=== PATIENT | female | born 1935 | race Hispanic/Latino ===

== ENCOUNTER 2019-09-05 15:56 | Inpatient (IN) | payer MEDICARE, OTHER ==
[~2019-09-05] VITALS: Ht 154.9 cm; Wt 79.4 kg
[2019-09-05] MEDS ORDERED: ASPIRIN 81 MG CHEW TAB PO ONE (16:15)
--- NOTE | 2019-09-05 16:51 | Diagnostic Imaging Report ---
EXAM: CHEST SINGLE (PORTABLE) DATE: 09/05/2019 4:24 PM INDICATION: Fall/edema COMPARISON: None IMPRESSION: Lung volumes are low/there is poor inspiratory effort. The trachea is midline. There is minimal prominence of the interstitium which is nonspecific but can be seen in setting of edema. There is no evidence for large focal consolidation or pneumothorax. There is blunting of the costophrenic angles and trace effusions are suspected. The cardiomediastinal silhouette is magnified by technique. Atherosclerotic calcifications are noted within the thoracic aorta. No acute osseous abnormality is identified. Signed by: Dr. Danny Cartwright MD on 09/05/2019 4:47 PM
--- NOTE | 2019-09-05 17:06 | NUR ---
pt daughter signs consent for pt for central line
[2019-09-05 17:24] LABS: BILIRUBIN,URINE SMALL (NEGATIVE); CLARITY,URINE SL CLOUDY (CLEAR); COLOR,URINE STRAW (YELLOW); KETONES,URINE 1+ (NEGATIVE); LEUKOCYTE ESTERASE ,URINE SMALL (NEGATIVE); NITRITE,URINE NEGATIVE (NEGATIVE); PROTEIN,URINE DIPSTICK NEGATIVE (NEGATIVE); URINE UROBILINOGEN 1 mg/dL (0.2 - 1)
--- OUTSIDE RECORDS SUMMARY | 2019-09-05 17:27 | XMS REPORT ---
Author Author [facility] Organization [facility] Address Unknown Phone Unavailable Care Team Providers Care Breeding Manager Name Role Phone FLOWER PRECIOUS Unavailable Unavailable Problems This patient has no known problems. Allergies, Adverse Reactions, Alerts This patient has no known allergies or adverse reactions. Medications This patient has no known medications. Results Test Description Test Time Test Comments Text Results Atomic Results Result Comments CHEST SINGLE (PORTABLE) 2019-09-05 16:46:00 [place] [address] Patient Name: MARYJO GEORGE MR #: [id number] : 1935 Age/Sex: 83/F Req #: [id number] Adm Physician: Ordered by: PRECIOUS CRENSHAW DO Report #: [id number] Location: ER Room/Bed: Procedure: [id number] DX/CHEST SINGLE (PORTABLE) Exam Date: 09/05/19 Exam Time: 1624 REPORT STATUS: Signed EXAM: CHEST SINGLE (PORTABLE) DATE: 09/05/2019 4:24 PM INDICATION: Fall/edema COMPARISON: None IMPRESSION: Lung volumes are low/there is poor inspiratory effort. The trachea is midline. There is minimal prominence of the interstitium which is nonspecific but can be seen in setting of edema. There is no evidence for large focal consolidation or pneumothorax. There is blunting of the costophrenic angles and trace effusions are suspected. The cardiomediastinal silhouette is magnified by technique. Atherosclerotic calcifications are noted within the thoracic aorta. No acute osseous abnormality is identified. Signed by: Dr. Danny Cartwright MD on 09/05/2019 4:47 PM Dictated By: DANNY CARTWRIGHT MD 46 Transcribed By: ROXIE on 09/05/191646 COPY TO: PRECIOUS CRENSHAW DO
[2019-09-05 17:37] LABS: BACTERIA,URINE MANY /HPF
[2019-09-05] MEDS: PIPER-TAZ 3.375 GM 50 ML IV SCH (18:26)
[2019-09-05 18:42] LABS: BASOPHILS % 0.2 % (0.0-1.0); EOSINOPHILS # (AUTO) 0.1 (0.0-0.4); EOSINOPHILS % 0.6 % (0.0-6.0); HEMATOCRIT 31.3 % (34.2-44.1); HEMOGLOBIN 10.6 g/dL (12.0-16.0); LYMPHOCYTES # (AUTO) 1.4 (1.0-3.2); LYMPHOCYTES % 13.5 % (18.0-39.1); MEAN CORPUSCULAR HEMOGLOBIN 30.5 pg (28-32); MEAN CORPUSCULAR HGB CONC 33.9 g/dL (31-35); MEAN CORPUSCULAR VOLUME 90.2 fL (81-99); MONOCYTES # (AUTO) 1.1 (0.2-0.8); MONOCYTES % 10.8 % (4.4-11.3); NEUTROPHILS # (AUTO) 7.5 (2.1-6.9); NEUTROPHILS % 74.4 % (38.7-80.0); PLATELET COUNT 185 x10e3/uL (140-360); RED BLOOD COUNT 3.47 x10e6/uL (3.6-5.1); RED CELL DISTRIBUTION WIDTH 15.1 % (11.7-14.4)
[2019-09-05 19:00] LABS: ALANINE AMINOTRANSFERASE 10 IU/L (0-55); ALBUMIN 2.2 g/dL (3.5-5.0); ALBUMIN/GLOBULIN RATIO 0.6 (0.8-2.0); ALKALINE PHOSPHATASE 67 IU/L (40-150); ANION GAP 12.4 mmol/L (8-16); BLOOD UREA NITROGEN 24 mg/dL (7-26); BUN/CREATININE RATIO 36 (6-25); CALCIUM 7.9 mg/dL (8.4-10.2); CARBON DIOXIDE 23 mmol/L (22-29); CHLORIDE 104 mmol/L (98-107); CREATINE KINASE 39 IU/L (29-168); CREATININE, SERUM 0.66 mg/dL (0.57-1.11); EST GLOMERULAR FILTRATION RATE > 60 ML/MIN (60-); GLUCOSE 172 mg/dL (74-118); LIPASE 26 U/L (8-78); POTASSIUM 4.4 mmol/L (3.5-5.1); SODIUM 135 mmol/L (136-145)
--- NOTE | 2019-09-05 19:00 | NUR ---
pt arrived to unit via stretcher, Noyola intact, left arm in sling, alert times herself, resp even and unlabored. will cont to monitor.
--- NOTE | 2019-09-05 19:23 | NUR ---
report given to oncoming nurse, walking rounds complete, pt stable at shift change.
--- NOTE | 2019-09-05 19:25 | NUR ---
Patient received lying in bed. AAO x 2. Patient had no complaints of pain. Respirations even and non-labored. Admission history obtained from chart (mostly armenian-speaking). Initial physical assessment performed. Patient noted with arm sling to right arm, generalized edema, left eye bruise, right upper shoulder/ arm bruising, blackened indurated head bruise (right eye region). Noyola catheter draining light estephania urine. Three attempts to call daughter (Lulú Mchugh----[phone]) proved futile. A message was left on voice-mail for her to contact hospital. Safety measures implemented. Patient instructed to call for assistance when needed. Call light within reach.
[2019-09-05 20:00] VITALS: BP 142/68
[2019-09-05] MEDS ORDERED: METFORMIN HCL500 MG PO (20:25)
[2019-09-05] MEDS ORDERED: ULTRAM 50MG50 MG PO (20:25)
[2019-09-05] MEDS ORDERED: GLIPIZIDE5 MG PO (20:25)
[2019-09-05 21:00] VITALS: BP 142/68
--- NOTE | 2019-09-05 21:30 | NUR ---
Admitting physician changed to Dr. Kike Mendez. New orders received.
[2019-09-05] MEDS ORDERED: DEXTROSE 50% SYRINGE 50 ML IV PRN (21:45)
--- NOTE | 2019-09-05 21:54 | NUR ---
Dr.C. Lynn notified of "Consult" . Reason: Right hand fracture.
[2019-09-05] MEDS: INSULIN REGULAR, HUMAN 100 UNIT/1 ML 3ML VIAL SQ SCH (22:00)
--- NOTE | 2019-09-05 22:33 | NUR ---
Dr. Gillian Garland aware of "Consult". Reason: Ascites
--- NOTE | 2019-09-05 22:34 | NUR ---
Patient back from CT of Brain WO.
[2019-09-05] MEDS ORDERED: SODIUM CHLORIDE 0.9% 250ML 250 ML ONE (23:19)
--- NOTE | 2019-09-05 23:47 | Diagnostic Imaging Report ---
History:Altered mental status Comparison studies: None Technique: Axial images were obtained from the skull base to the vertex. Coronal and sagittal images reconstructed from the axial data. Dose modulation, iterative reconstruction, and/or weight based adjustment of the mA/kV was utilized to reduce the radiation dose to as low as reasonably achievable. Intravenous contrast: None Findings: Scalp/skull: No abnormalities. Extra-axial spaces: No masses. No fluid collections. Brain sulci: Moderately prominent. Ventricles: Moderate compensatory dilatation. No hydrocephalus. Parenchyma: Ill-defined, confluent hypodensities in the supratentorial white matter are small vessel ischemic changes. No masses, hemorrhage, acute or chronic cortical vascular insults. Sellar/suprasellar region: No abnormalities. Craniocervical junction: Patent foramen magnum. No Chiari one malformation. Incidental findings: Atherosclerotic calcifications in the carotid siphons and vertebral arteries. Peripheral mucosal thickening in a hypoplastic left sphenoid sinus. Impression: No acute abnormalities. Chronic findings: 1. Moderate generalized volume loss. 2. Moderate supratentorial white matter small vessel ischemic changes. Signed by: Dr. Gagan William M.D. on 09/05/2019 11:44 PM
[2019-09-06] VITALS (10 sets, daily range): BP systolic 89–159; BP diastolic 56–97
--- NOTE | 2019-09-06 01:35 | NUR ---
Urine specimen sent to lab for analysis.
[2019-09-06 02:47] LABS: CLARITY,URINE CLOUDY (CLEAR); COLOR,URINE AMBER (YELLOW); LEUKOCYTE ESTERASE ,URINE 1+ (NEGATIVE); NITRITE,URINE POSITIVE (NEGATIVE)
[2019-09-06 02:48] LABS: BILIRUBIN,URINE SMALL (NEGATIVE); KETONES,URINE 2+ (NEGATIVE); PROTEIN,URINE DIPSTICK 2+ (NEGATIVE); URINE UROBILINOGEN 1 mg/dL (0.2 - 1)
[2019-09-06 03:04] LABS: BACTERIA,URINE MANY /HPF; EPITHELIAL CELLS,URINE FEW /LPF; RBC,URINE 21-50 /HPF (0-5); RENAL EPITHELIAL CELLS,URINE FEW; WBC,URINE (MAN) >50 /HPF (0-5)
--- NOTE | 2019-09-06 03:12 | NUR ---
Attempt was made to obtain consent from patient for paracentesis via Multicultural link through a financial services professional (--#[phone]) , Audio access ID #[id number]. However, patient stated that Nurse call her granddaughter---Starr Mata. No phone number in chart. Would attempt patient's home number ([phone] ) in the morning.
--- NOTE | 2019-09-06 05:35 | NUR ---
H&P cc: confusion HPI: 83yoF, PCP, developed confusion, found to have UTI and hyperbilirubinemia. Pt apparently fell, with resulting injury to right arm, now in sling. Pt is a poor historian. PMH: obesity PSHx: unknown Allergies; see emr Fh/SH; unknown meds; see MAR ROS: unreliable V/s; revd PE tired appearing anicteric ns1s2 Reduced breath sounds large abdomen,soft, nontender 2+ leg edema B/L right arm in sling skin dry n. affect alert; oriented x2 labs/meds revd A/P: 83yoF Hyperbilirubinemia- check hepatitis panel UTI- zosyn Pleural effusion B/L- diurese Peripheral edema- diurese Ascites- paraecentesis scheduled Right hand fx?- check XR of entire arm/wrist SKYLER/AMS- treat UTI; Ammonia 40 Obesity- caloric restriction needed BMI 33.1- as above DM2- hba1c/lipids Prop: scd; pepcid dispo: f/u labs; paracentesis. XR of right arm. Balta Mendez MD, PhD.
[2019-09-06] MEDS ORDERED: TRAMADOL HCL 50 MG TAB PO PRN (05:45)
[2019-09-06] MEDS ORDERED: ZOLPIDEM TARTRATE 5 MG TAB PO PRN (05:45)
[2019-09-06] MEDS ORDERED: ONDANSETRON HCL INJ 2MG/ML 2ML 2 MG/ML VIAL IV PRN (05:45)
--- NOTE | 2019-09-06 05:52 | NUR ---
A call was placed to telephone number ([phone]) listed in chart as patient's number. No one picked up the phone. No space to leave a voice-message.
[2019-09-06 05:58] LABS: ALANINE AMINOTRANSFERASE 8 IU/L (0-55); ALBUMIN 1.9 g/dL (3.5-5.0); ALBUMIN/GLOBULIN RATIO 0.6 (0.8-2.0); ALKALINE PHOSPHATASE 55 IU/L (40-150); ANION GAP 11.3 mmol/L (8-16); BLOOD UREA NITROGEN 23 mg/dL (7-26); BUN/CREATININE RATIO 35 (6-25); CALCIUM 7.7 mg/dL (8.4-10.2); CARBON DIOXIDE 24 mmol/L (22-29); CHLORIDE 105 mmol/L (98-107); CREATININE, SERUM 0.66 mg/dL (0.57-1.11); EST GLOMERULAR FILTRATION RATE > 60 ML/MIN (60-); GLUCOSE 143 mg/dL (74-118); POTASSIUM 4.3 mmol/L (3.5-5.1); SODIUM 136 mmol/L (136-145)
[2019-09-06] MEDS: PIPER-TAZ 3.375 GM 50 ML IV SCH ×4 (06:00→17:48)
--- NOTE | 2019-09-06 06:28 | NUR ---
Telephone consent for "Paracentesis" obtained from daughter----Lulú Mchugh ([phone]). Sathya Frey (YENI) serving as witness.
[2019-09-06 06:30] LABS: BASOPHILS % 0.2 % (0.0-1.0); EOSINOPHILS # (AUTO) 0.1 (0.0-0.4); EOSINOPHILS % 0.8 % (0.0-6.0); HEMATOCRIT 28.2 % (34.2-44.1); HEMOGLOBIN 9.5 g/dL (12.0-16.0); LYMPHOCYTES # (AUTO) 1.4 (1.0-3.2); LYMPHOCYTES % 14.1 % (18.0-39.1); MEAN CORPUSCULAR HEMOGLOBIN 30.3 pg (28-32); MEAN CORPUSCULAR HGB CONC 33.7 g/dL (31-35); MEAN CORPUSCULAR VOLUME 89.8 fL (81-99); MONOCYTES # (AUTO) 1.1 (0.2-0.8); MONOCYTES % 11.6 % (4.4-11.3); NEUTROPHILS # (AUTO) 7.1 (2.1-6.9); NEUTROPHILS % 72.9 % (38.7-80.0); PLATELET COUNT 133 x10e3/uL (140-360); RED BLOOD COUNT 3.14 x10e6/uL (3.6-5.1)
[2019-09-06 06:51] LABS: INR 1.26; PROTHROMBIN TIME 16.6 seconds (11.9-14.5)
--- NOTE | 2019-09-06 07:00 | NUR ---
Patient resting comfortably. No acute distress noted. Shift report given to oncoming nurse regarding patient's status.
[2019-09-06 07:08] LABS: FERRITIN 57.14 ng/mL (4.63-204.00)
--- NOTE | 2019-09-06 07:10 | NUR ---
RCD PT AT BED PT IS ALERT AND ORIENTED RESTING ON BED IV PATENT BY SALINE FLUSH PT NPO FOR PROCEDURE BED LOW AND LOCKED CALL LIGHT IN REACH
[2019-09-06 07:28] LABS: CREATINE KINASE MB 4.7 ng/mL (0-5.0)
[2019-09-06] MEDS: FAMOTIDINE 20 MG TAB PO SCH ×2 (07:30→16:30)
[2019-09-06] MEDS: INSULIN REGULAR, HUMAN 100 UNIT/1 ML 3ML VIAL SQ SCH ×4 (07:30→21:09)
--- NOTE | 2019-09-06 09:12 | Diagnostic Imaging Report ---
EXAM: Limited abdominal Ultrasound INDICATION: ^Ascites ^[id number] ^0745 COMPARISON: None. TECHNIQUE: Transverse and longitudinal images of the 4 abdominal quadrants FINDINGS: Sonographic evaluation of the 4 abdominal quadrants confirms presence of moderate anechoic ascites throughout the peritoneal space. IMPRESSION: Moderate ascites. Signed by: Dr. Kingsley Schuster M.D. on 09/06/2019 9:08 AM
--- NOTE | 2019-09-06 11:37 | NUR ---
PATIENT WENT TO PROCEDURE IN SAFE CONDITION
--- NOTE | 2019-09-06 12:30 | NUR ---
REMOVED 5.9 LTRS YELLOW COLOR
--- NOTE | 2019-09-06 12:30 | NUR ---
PT BACK AFTER PROCEDURE PT IS ALERT AND ORIENTED VITALS CHECKED PT RESTING ON BED NO SIGNS OF ANY LEAKAGE ON THE NEEDLE SITE ON ABDOMEN
--- NOTE | 2019-09-06 13:24 | Diagnostic Imaging Report ---
EXAMINATION: SHOULDER RIGHT COMPLETE, HAND 3+ VIEWS RIGHT, WRIST COMPLETE RIGHT INDICATION: Trauma COMPARISON: None FINDINGS: Right shoulder: Mildly displaced acute anatomic neck of proximal humerus fracture with mild lateral displacement of greater tuberosity fragment. No other acute fracture. Visualized portions of the right lung are clear. Right wrist: No acute fracture or dislocation. Mild widening of the scapholunate interval. Alignment appears anatomic. Mild scattered degenerative changes. Atherosclerotic arterial calcifications. Right hand: No acute fracture or dislocation. Mild scattered degenerative changes. Atherosclerotic arterial calcifications. IMPRESSION: Mildly displaced anatomic neck of proximal humerus fracture. No acute fracture of the wrist or hand. Mild widening of the scapholunate interval, more likely chronic than related to acute injury. Signed by: Aida Valencia MD on 09/06/2019 1:20 PM
--- NOTE | 2019-09-06 13:33 | Diagnostic Imaging Report ---
PROCEDURE: Ultrasound-guided paracentesis Procedural Personnel Attending physician(s): Aida Valencia MD Pre-procedure diagnosis: Ascites Post-procedure diagnosis: Unchanged Indication: Ascites with pain or pressure symptoms Additional clinical history: None Complications: No immediate complications. IMPRESSION: Ultrasound-guided paracentesis with drainage of 5900 mL of serous fluid. Plan: Resume care by clinical team. PROCEDURE SUMMARY: - Limited abdominal ultrasound - Ultrasound-guided paracentesis - Additional procedure(s): None PROCEDURE DETAILS: Pre-procedure Consent: Informed consent for the procedure including risks, benefits and alternatives was obtained and time-out was performed prior to the procedure. Preparation: The site was prepared and draped using maximal sterile barrier technique including cutaneous antisepsis. Anesthesia/sedation Level of anesthesia/sedation: None Initial abdominal ultrasound Initial abdominal ultrasound was performed. Findings: Large ascites. A safe window for paracentesis was identified. Paracentesis Local anesthesia was administered. The peritoneal cavity was accessed and fluid return confirmed position. Ascites was drained. The catheter was then removed, and a sterile bandage was applied. Paracentesis access technique: Real-time ultrasound guidance. Catheter placed: 5Fr Yueh Post-drainage ultrasound: Small ascites Additional Details Additional description of procedure: None Equipment details: None Specimens removed: Abdominal fluid Estimated blood loss (mL): Minimal (<10cc) Standardized report: [id number] Attestation Signer name: Aida Valencia MD I attest that I was present for the entire procedure. I reviewed the stored images and agree with the report as written. Signed by: Aida Valencia MD on 09/06/2019 1:30 PM
--- NOTE | 2019-09-06 19:15 | NUR ---
PT RESTING ON BED BED SIDE REPORT GIVEN TO ONCOMING NURSE
--- NOTE | 2019-09-06 19:15 | NUR ---
RECEIVED BEDSIDE REPORT FROM DAY RN. PT ALERT X1. CONFUSED BUT COOPERATIVE WITH CARE. PT SPEAKS [place]. RESPIRATIONS ARE EVEN AND UNLABORED. TELE ON. SLING ON RT SHOULDER AND ARM. PT FORGETFUL AND TRY TO REMOVE SLING. 20 G SL LEFT AC. DRESSING TO ABDOMEN DRY AND INTACT. DRESSING TO RT GROIN MODERATELY SATURATED WITH SEROUS SANGUINOUS DRAINAGE.SORIANO CATHER DRAING CLEAR YELLOW URINE.SORIANO USED DUE TO RETENTION.BRUISE ABOVE LEFT EYE. BRUISES NOTED ON RT ARM AND SHOULDER. TALKED WITH DAUGHTER ABOUT DOCTOR'S PLANS.CALL LIGHT WITHIN REACH. BED IN LOW POSITION.LOWER EXTREMITIES EDEMATOUS.
--- NOTE | 2019-09-06 19:16 | NUR ---
ORTHOPEDIC CONSULTATION 83 year old female presents to the ED after fall with AMS, and UTI. Patient is occitan speaking and poor historian. She complains of mainly right shoulder pain. She denies any numbness, paresthesias or loss of distal motor function. PMdHx: Obesity SurgHx: Unknown Allergies: NKDA Meds: See Med Reconciliation FamHx: Non-contributory SocHx: No EtOH, Tob or Drugs VS T 97.5 HR 89 RR 18 BP 136/66 O2 97% Right Upper Extremity In Sling Motor: + AIN, PIN, Radial, Median, Ulnar Sensation intact to light touch and along Axillary region Pulses + Radial, good capillary refill Compartments soft No TTP of Wrist and Hand Xrays: No gross fracture of hand or wrist. Mild widening of scapholunate interval. Surgical neck fracture of humerus seen on one view. 83 yo with Right Proximal Humerus Surgical Neck Fracture and likely chronic scapholunate sprain. 1. Continue Sling 2. Follow up Xrays of Right Proximal Humerus 3. Likely no operative intervention at this time. Will be confirmed after visualization of additional views 4. NWB RUE 5. Patient may follow up in office in 1 week for repeat Xray 6. Discussed plan of care with patient. Thank you for the consultation Britt Lynn, DO [facility] [place].
[2019-09-06 20:15] LABS: BODY FLUID APPEARANCE SL.CLOUDY; BODY FLUID COLOR YELLOW; BODY FLUID TYPE PERITONEAL
[2019-09-06 20:20] LABS: EOSINOPHILS,BODY FLUID 1 %; LYMPHOCYTES,BODY FLUID 48 %; MONO/MACROPHG,BODY FLUID 44 %; NEUTROPHILS,BODY FLUID 3 %
[2019-09-06 20:21] LABS: OTHER CELLS,BODY FLUID 4 %
[2019-09-06 20:24] LABS: RBC,BODY FLUID 38 cells/uL; WBC,BODY FLUID 30 cells/uL
--- NOTE | 2019-09-06 20:42 | Diagnostic Imaging Report ---
Shoulder complete CPT code: 31398 Indication: ^fracture, need AP, Grashey and Scap Y ^[id number] ^2014 Technique: Portable AP, Y and Grashey images obtained. Comparison: Shoulder series 09/06/2019. Findings: Fracture of the humeral head and neck is redemonstrated with impaction and lateral displacement of the greater tuberosity. The humeral head remains articulated with the glenoid. The distal fracture fragment (humeral diaphysis) is displaced anteriorly. The clavicle and acromion are properly aligned. No fracture evident involving the visualized portion of the scapula. IMPRESSION: Fracture of the right humeral head and neck without humeral head dislocation. Anterior displacement of the humeral diaphysis. Signed by: Dr. Callie Rashid MD on 09/06/2019 8:38 PM
[2019-09-07] VITALS (8 sets, daily range): BP systolic 100–143; BP diastolic 53–64
[2019-09-07] MEDS ORDERED: IRON SUCROSE 100 MG in SODIUM CHLORIDE 0.9% 100 ML 100 ML IV SCH (05:00)
[2019-09-07 05:35] LABS: BASOPHILS % 0.3 % (0.0-1.0); EOSINOPHILS # (AUTO) 0.1 (0.0-0.4); EOSINOPHILS % 0.9 % (0.0-6.0); HEMATOCRIT 29.8 % (34.2-44.1); LYMPHOCYTES # (AUTO) 1.4 (1.0-3.2); LYMPHOCYTES % 13.3 % (18.0-39.1); MEAN CORPUSCULAR HEMOGLOBIN 30.1 pg (28-32); MEAN CORPUSCULAR HGB CONC 33.6 g/dL (31-35); MEAN CORPUSCULAR VOLUME 89.8 fL (81-99); MONOCYTES # (AUTO) 1.2 (0.2-0.8); MONOCYTES % 11.8 % (4.4-11.3); NEUTROPHILS # (AUTO) 7.5 (2.1-6.9); NEUTROPHILS % 73.3 % (38.7-80.0); PLATELET COUNT 144 x10e3/uL (140-360); RED BLOOD COUNT 3.32 x10e6/uL (3.6-5.1); RED CELL DISTRIBUTION WIDTH 15.4 % (11.7-14.4)
[2019-09-07 05:39] LABS: ALANINE AMINOTRANSFERASE 10 IU/L (0-55); ALBUMIN 1.9 g/dL (3.5-5.0); ALBUMIN/GLOBULIN RATIO 0.6 (0.8-2.0); ALKALINE PHOSPHATASE 53 IU/L (40-150); ANION GAP 13.8 mmol/L (8-16); BLOOD UREA NITROGEN 19 mg/dL (7-26); BUN/CREATININE RATIO 29 (6-25); CALCIUM 7.7 mg/dL (8.4-10.2); CARBON DIOXIDE 23 mmol/L (22-29); CHLORIDE 105 mmol/L (98-107); CREATININE, SERUM 0.65 mg/dL (0.57-1.11); EST GLOMERULAR FILTRATION RATE > 60 ML/MIN (60-); GLUCOSE 132 mg/dL (74-118); POTASSIUM 3.8 mmol/L (3.5-5.1); SODIUM 138 mmol/L (136-145)
--- NOTE | 2019-09-07 05:45 | NUR ---
Patient was transferred from Rm 209 (MS 2 unit) to Rm 284 (MS 3 unit) to help place pt in a room closer to the nurses' station since pt has intermittent confusion and frequent attempts to get up and out of bed. Currently, patient alert and oriented x2 (self and place). Pt on scheduled IV antibiotics. Noyola in place for urinary retention and a sling on right arm due to fracture on right humerus (based on latest x-ray). Pt on bedrest at this time. As per report received from Brando (RN), pt possibly discharging home today. Pt calm and resting at this time. Bed alarm not working and HS (Jessie) is aware. Pt high risk for fall and HS (Jessie) stated there is no one they can assign to sit with patient today even if sitter order was obtained from Dr. Mendez. Will pass on this information to incoming dayshift nurse and FIRE CONTROL ASSISTANT.
[2019-09-07] MEDS: PIPER-TAZ 3.375 GM 50 ML IV SCH ×4 (05:57→18:18)
--- NOTE | 2019-09-07 06:07 | NUR ---
IM- progress note O/N see below ROS: unreliable V/s; revd PE tired appearing anicteric ns1s2 Reduced breath sounds large abdomen,soft, nontender 2+ leg edema B/L right arm in sling skin dry n. affect alert; oriented x2 labs/meds revd A/P: 83yoF Hyperbilirubinemia- check hepatitis panel UTI- zosyn Pleural effusion B/L- diurese Peripheral edema- diurese Ascites- paraecentesis scheduled Right hand fx?- check XR of entire arm/wrist SKYLER/AMS- treat UTI; Ammonia 40 Obesity- caloric restriction needed BMI 33.1- as above DM2- hba1c/lipids Prop: scd; pepcid dispo: f/u labs; paracentesis. XR of right arm. 5-7 Right humeral head and neck fracture- ortho consulted; Balta Mendez MD, PhD.
--- NOTE | 2019-09-07 07:10 | NUR ---
PATIENT IN BED RESTING WITH NO S/S OF DISTRESS. SLING TO RIGHT ARM, BRUISES TO LEFT EYES AND BOTH ARMS, GENERALIZED EDEMA, SORIANO CATHETER WITH CLEAR YELLOW URINE. BED IN LOWER POSITION, CALL LIGHT AT REACH.
[2019-09-07] MEDS: INSULIN REGULAR, HUMAN 100 UNIT/1 ML 3ML VIAL SQ SCH ×4 (07:30→20:58)
[2019-09-07] MEDS: FAMOTIDINE 20 MG TAB PO SCH ×2 (08:00→16:30)
[2019-09-07] MEDS: IRON SUCROSE 100 MG in SODIUM CHLORIDE 0.9% 100 ML 100 ML IV SCH (09:31)
[2019-09-07] MEDS: FUROSEMIDE 40 MG TAB PO SCH (09:32)
[2019-09-07] MEDS: SPIRONOLACTONE 25 MG TAB PO SCH (09:32)
--- NOTE | 2019-09-07 11:20 | NUR ---
PATIENT EXERCISED AND TRANSFERRED OUT OF BED TO RECLINING CHAIR WITH PHYSICAL THERAPY. CALL LIGHT AT REACH.
--- NOTE | 2019-09-07 15:59 | NUR ---
PATIENT ASSISTED WITH DIAPER CHANGE, HAD A BM. REPOSITIONED IN BED. CALL LIGHT AT REACH.
--- NOTE | 2019-09-07 19:00 | NUR ---
Patient visited in room during nursing rounds. Patient alert and oriented x2. Pt chilean speaking only. No distress or discomfort noted. Right arm on a sling and nice catheter in place for urinary retention. Pt still with generalized edema (bilateral upper and bilateral lower extremities). Pt on scheduled IV antibiotics. Pt on bedrest and bed alarm active. Call byrnes within reach.
--- NOTE | 2019-09-07 19:06 | NUR ---
BED SIDE SHIFT REPORT GIVEN TO ON COMING .PATIENT IN BED RESTING WITH NO S/S OF DISTRESS.
--- NOTE | 2019-09-07 20:40 | NUR ---
ORTHOPEDIC PROGRESS NOTE Xrays of right upper shoulder were reviewed. 83 yo with Right Proximal Humerus Surgical Neck Fracture and likely chronic scapholunate sprain. 1. Continue Sling 2. No operative intervention at this time. Will be confirmed after visualization of additional views 4. NWB RUE 5. Patient may follow up in office in 1 week for repeat Xray 6. Discussed plan of care with patient. Thank you for the consultation Britt Lynn, DO [facility] [place]
--- NOTE | 2019-09-07 21:00 | NUR ---
Pt visited in room and pt appear calm and comfortable. Pt denies any discomfort or pain. Pt singing faith songs at this time.
--- NOTE | 2019-09-07 22:30 | NUR ---
Dr. Jeffery Garland came and visited pt in room. aware of pt condition and instructed nurse (Thierry) to attempt to feed pt tonight.
--- NOTE | 2019-09-07 22:48 | NUR ---
Pt assisted by nurse (Thierry) in feeding. Pt ate 30% of vanilla pudding cup and 50% of orange raquel cup.
[2019-09-08] VITALS (8 sets, daily range): BP systolic 111–138; BP diastolic 53–69
--- NOTE | 2019-09-08 00:30 | NUR ---
Patient was cleaned in bed. Diaper and linens were changed. Pt turned from side to side while being cleaned. But towards the end, patient preferred to lay on back with HOB elevated 30 degrees.
[2019-09-08] MEDS: PIPER-TAZ 3.375 GM 50 ML IV SCH ×5 (05:53→23:45)
[2019-09-08 06:43] LABS: BASOPHILS % 0.4 % (0.0-1.0); EOSINOPHILS # (AUTO) 0.1 (0.0-0.4); EOSINOPHILS % 1.5 % (0.0-6.0); HEMATOCRIT 32.5 % (34.2-44.1); HEMOGLOBIN 10.6 g/dL (12.0-16.0); LYMPHOCYTES # (AUTO) 1.3 (1.0-3.2); LYMPHOCYTES % 15.3 % (18.0-39.1); MEAN CORPUSCULAR HGB CONC 32.6 g/dL (31-35); MEAN CORPUSCULAR VOLUME 92.1 fL (81-99); MONOCYTES # (AUTO) 0.9 (0.2-0.8); MONOCYTES % 10.6 % (4.4-11.3); NEUTROPHILS # (AUTO) 5.8 (2.1-6.9); NEUTROPHILS % 71.5 % (38.7-80.0); PLATELET COUNT 133 x10e3/uL (140-360); RED BLOOD COUNT 3.53 x10e6/uL (3.6-5.1); RED CELL DISTRIBUTION WIDTH 15.9 % (11.7-14.4)
[2019-09-08 06:57] LABS: ANION GAP 9.4 mmol/L (8-16); BLOOD UREA NITROGEN 15 mg/dL (7-26); BUN/CREATININE RATIO 23 (6-25); CALCIUM 7.4 mg/dL (8.4-10.2); CARBON DIOXIDE 26 mmol/L (22-29); CHLORIDE 107 mmol/L (98-107); CREATININE, SERUM 0.65 mg/dL (0.57-1.11); EST GLOMERULAR FILTRATION RATE > 60 ML/MIN (60-); GLUCOSE 106 mg/dL (74-118); POTASSIUM 3.4 mmol/L (3.5-5.1); SODIUM 139 mmol/L (136-145)
[2019-09-08] MEDS: INSULIN REGULAR, HUMAN 100 UNIT/1 ML 3ML VIAL SQ SCH ×4 (07:30→22:00)
--- NOTE | 2019-09-08 08:05 | NUR ---
IM- progress note O/N see below ROS: unreliable V/s; revd PE tired appearing anicteric ns1s2 Reduced breath sounds large abdomen,soft, nontender 2+ leg edema B/L right arm in sling skin dry n. affect alert; oriented x2 labs/meds revd A/P: 83yoF Hyperbilirubinemia- check hepatitis panel UTI- zosyn Pleural effusion B/L- diurese Peripheral edema- diurese Ascites- paraecentesis scheduled Right hand fx?- check XR of entire arm/wrist SKYLER/AMS- treat UTI; Ammonia 40 Obesity- caloric restriction needed BMI 33.1- as above DM2- hba1c/lipids Prop: scd; pepcid dispo: f/u labs; paracentesis. XR of right arm. 5-7 Right humeral head and neck fracture- ortho consulted; 5-8 Citrobacter infectionin Urine- cont IV abx. No surgery indicated per ortho. Max assist- SNF eval. Balta Mendez MD, PhD.
--- NOTE | 2019-09-08 08:10 | NUR ---
ORDERS FOR HOME HEALTH CARE REVIEWING PHYSICAL THERAPY NOTES PT IS UNSTEADY AND REQUIRES MAX ASSIST 2 FOR SITTING TO STANDING P.T. RECOMMENDS INPT REHAB CALL PLACED TO DR ORNELAS TO SEE IF SNF WOULD BE A SAFER DC PLAN P.T. NOTES PT HAD A FUNCTIONAL DECLINE IN STATUS YESTERDAY PT ON IV ZOSYN FOR CITROBACTER IN UA
[2019-09-08] MEDS: IRON SUCROSE 100 MG in SODIUM CHLORIDE 0.9% 100 ML 100 ML IV SCH (08:25)
[2019-09-08] MEDS: FUROSEMIDE 40 MG TAB PO SCH (08:25)
[2019-09-08] MEDS: FAMOTIDINE 20 MG TAB PO SCH ×2 (08:25→17:09)
[2019-09-08] MEDS: SPIRONOLACTONE 25 MG TAB PO SCH (08:25)
--- NOTE | 2019-09-08 09:07 | NUR ---
DR ORNELAS CALLED BACK AND SNF ORDERED WITH ORDERS TO TRANSFER WHEN ACCEPTED WILL NEED ADDITIONAL 7 DAYS OF IV ABX WHEN TRANSFERED TO SNF
--- NOTE | 2019-09-08 10:39 | NUR ---
- Lulú- patient's daughter [phone]- Starr- patient's oldest daughter
--- NOTE | 2019-09-08 11:01 | NUR ---
CALLED DAUGHTER VICKI ABOUT SNF ORDER, LEFT MESSAGE FOR RETURN CALL.
--- NOTE | 2019-09-08 11:43 | NUR ---
CALLED DAUGHTER NEO WHOM [address] CALLED HER SISTER BERNA, SPOKE ABOUT SNF ORDERS AND IN NETWORK, THEY HAVE A NEPHEW THAT WORKS AT A FACILITY AND WILL CALL BACK WITH A DECISION.
--- NOTE | 2019-09-08 13:50 | NUR ---
order for midline placed. radiology aware.
[2019-09-08] MEDS ORDERED: ONDANSETRON HCL 4 MG ORAL DISINTEGRATING TAB PO PRN (15:45)
--- NOTE | 2019-09-08 15:47 | NUR ---
[facility] FACILITY DISCHARGE INFORMATION PATIENT HAS BEEN ACCEPTED TO: NAME: [facility] [place] [place] ADDRESS: [id number] [facility] ACCEPTING COMBAT CONTROL MANAGER: PRECIOUS MENDEZ MD: Britney ORNELAS ROOM:111 NURSE CALL REPORT TO: [phone] IMM SIGNED AND OBTAINED (if applicable): IMM THE FOLLOWING DOCUMENTS MUST ACCOMPANY PATIENT FOR TRANSFER: COPIED CHART: PACKET
[2019-09-08] MEDS ORDERED: ZOSYN 3.373.375 GM/5 IVP ×2 (16:01→16:02)
--- NOTE | 2019-09-08 17:32 | NUR ---
waiting for midline at this time. patient aware that she will discharge to [facility] after midline. daughter, amanda, aware as well. tm.
--- NOTE | 2019-09-08 19:00 | NUR ---
Patient visited in room during nursing rounds. Patient alert and oriented x2 and icelandic speaking only. Plan for patient is she will have midline insertion tonight then will be send to [facility] via ambulance. Pt has nice cath for UR. Sling on right arm due to fracture on right humerus. Call byrnes within reach. Will monitor.
--- NOTE | 2019-09-08 20:30 | NUR ---
Midline successfully placed by PICC nurse via left upper arm.
--- NOTE | 2019-09-08 21:00 | NUR ---
Attempted to call [facility] (at tel # [phone]) and no answer from staff to give report to. Will re-attempt later.
--- NOTE | 2019-09-08 21:15 | NUR ---
Attempted to call [facility] (at tel # [phone]) and no answer from staff to give report to. Will re-attempt later.
--- NOTE | 2019-09-08 21:30 | NUR ---
Attempted to call [facility] (at tel # [phone]) and no answer from staff to give report to. Will re-attempt later.
--- NOTE | 2019-09-08 21:45 | NUR ---
Attempted to call [facility] (at tel # [phone]) and no answer from staff to give report to. Will re-attempt later.
--- NOTE | 2019-09-08 22:00 | NUR ---
Attempted to call [facility] (at tel # [phone]) and no answer from staff to give report to. Will re-attempt later. Informed HS (Crystal Mendes RN) that [facility] staff not picking up call for report. HS will hold off ambulance transport and will ask Administration if pt can be transferred without calling for report or keep pt in the hospital for now.
--- NOTE | 2019-09-08 22:06 | NUR ---
Called Dr. Mendez to verify order on nice catheter. ordered to keep nice cath in for urinary retention.
--- NOTE | 2019-09-08 22:50 | NUR ---
Spoke with Starr Mata (patient's daughter) via phone to inform of current dilemma (no report given yet to [facility] staff) and thus transfer might be delayed. Starr requesting to keep pt tonight and re-attempt to call for report tomorrow and safely transfer pt tomorrow.
--- NOTE | 2019-09-08 22:56 | NUR ---
Called Dr. Mendez and informed of the difficulties to give report to [facility] staff and that no one is picking up call. MD aware and consented ok to keep pt tonight and transfer patient tomorrow morning after report has been called.
--- NOTE | 2019-09-08 23:00 | NUR ---
Nurse called (via phone) Starr Mata and informed that patient will stay tonight and plan to transfer patient tomorrow to [facility] once report has been given. Starr and family members aware of plan.
--- NOTE | 2019-09-08 23:15 | NUR ---
Offered patient water to drink or food to eat but pt declined at this time.
[2019-09-09] VITALS: BP 104/51
[2019-09-09 04:00] VITALS: BP 114/54
[2019-09-09] MEDS ORDERED: FUROSEMIDE 40 MG TAB PO SCH (06:00)
--- NOTE | 2019-09-09 06:30 | NUR ---
Attempted to call [facility] (at tel # [phone]) and no answer from staff to give report to. Will report to incoming day nurse that report needs to be called this morning to facilitate in transferring patient.
[2019-09-09] MEDS: PIPER-TAZ 3.375 GM 50 ML IV SCH (06:40)
[2019-09-09 06:52] LABS: BASOPHILS % 0.3 % (0.0-1.0); EOSINOPHILS # (AUTO) 0.1 (0.0-0.4); EOSINOPHILS % 1.4 % (0.0-6.0); HEMATOCRIT 29.5 % (34.2-44.1); HEMOGLOBIN 9.6 g/dL (12.0-16.0); LYMPHOCYTES # (AUTO) 1.4 (1.0-3.2); LYMPHOCYTES % 16.1 % (18.0-39.1); MEAN CORPUSCULAR HEMOGLOBIN 29.4 pg (28-32); MEAN CORPUSCULAR HGB CONC 32.5 g/dL (31-35); MEAN CORPUSCULAR VOLUME 90.5 fL (81-99); MONOCYTES % 11.6 % (4.4-11.3); NEUTROPHILS % 69.9 % (38.7-80.0); PLATELET COUNT 136 x10e3/uL (140-360); RED BLOOD COUNT 3.26 x10e6/uL (3.6-5.1)
[2019-09-09 07:30] LABS: ALANINE AMINOTRANSFERASE 8 IU/L (0-55); ALBUMIN 1.9 g/dL (3.5-5.0); ALBUMIN/GLOBULIN RATIO 0.6 (0.8-2.0); ALKALINE PHOSPHATASE 55 IU/L (40-150); ANION GAP 10.3 mmol/L (8-16); BLOOD UREA NITROGEN 16 mg/dL (7-26); BUN/CREATININE RATIO 23 (6-25); CALCIUM 7.2 mg/dL (8.4-10.2); CARBON DIOXIDE 26 mmol/L (22-29); CHLORIDE 104 mmol/L (98-107); CREATININE, SERUM 0.71 mg/dL (0.57-1.11); EST GLOMERULAR FILTRATION RATE > 60 ML/MIN (60-); GLUCOSE 106 mg/dL (74-118); POTASSIUM 3.3 mmol/L (3.5-5.1); SODIUM 137 mmol/L (136-145)
[2019-09-09] MEDS: INSULIN REGULAR, HUMAN 100 UNIT/1 ML 3ML VIAL SQ SCH (07:30)
--- NOTE | 2019-09-09 07:54 | NUR ---
attempted to call report to [facility], no answer. will attempt again later. patient doing fine resting in bed.
--- NOTE | 2019-09-09 08:03 | NUR ---
Called [facility] admissions dean Nona and informed her that no one is picking up the phone for report. States she will call the facility and have them call our nurse for report. BRENNA provided her with [facility] nurses station number.
[2019-09-09] MEDS: FAMOTIDINE 20 MG TAB PO SCH (08:17)
[2019-09-09] MEDS: IRON SUCROSE 100 MG in SODIUM CHLORIDE 0.9% 100 ML 100 ML IV SCH (08:17)
[2019-09-09 08:38] VITALS: BP 128/55
--- NOTE | 2019-09-09 08:59 | NUR ---
[facility] called me. Report given to Samir. will arrange transport.
[2019-09-09] MEDS ORDERED: SPIRONOLACTONE 25 MG TAB PO SCH (09:00)
[2019-09-09 09:21] VITALS: BP 128/55
--- NOTE | 2019-09-09 10:55 | NUR ---
EMS here for patient. daughter, amanda, called to notify her of transport but no answer. message left on voicemail. patient wheeled off unit in stable condition.
--- NOTE | 2019-09-09 11:45 | NUR ---
D/C summary Principal Dx: Hyperbilirubinemia- check hepatitis panel UTI with Cirobacter - zosyn Pleural effusion B/L- diurese Peripheral edema- diurese Ascites- paraecentesis scheduled Right humeral head and neck fracture - no sx per ortho; continue sling; PT consult; SKYLER/AMS- treat UTI; Ammonia 40 Obesity- caloric restriction needed BMI 33.1- as above DM2- hba1c/lipids Prop: scd; pepcid dispo: f/u labs; paracentesis. XR of right arm. 5-7 Right humeral head and neck fracture- ortho consulted; 5-8 Citrobacter infectionin Urine- cont IV abx. No surgery indicated per ortho. Max assist- SNF eval. d/c to SNF stable d/c>35mins f/u medical team at [facility] Balta Mendez MD, PhD.
== END 2019-09-09 10:59 | DRG 432 ==
LOC: ER 15:56 → ERHOLD 16:06 → MED/SURG2 18:39 → MED/SURG3 09-07 06:13
PROVIDERS: ADMIT Internal Medicine; ATTEND Internal Medicine
PROC: 0W9G3ZZ Drainage of Peritoneal Cavity, Percutaneous Approach (ICD-10-PCS; principal; 2019-09-06)
PROC: 05HY33Z Insertion of Infusion Device into Upper Vein, Percutaneous Approach (ICD-10-PCS; 2019-09-08)
DX: K70.31 Alcoholic cirrhosis of liver with ascites (principal); G93.41 Metabolic encephalopathy; N39.0 Urinary tract infection, site not specified; S42.411A Displaced simple supracondylar fracture without intercondylar fracture of right humerus, initial encounter for closed fracture; M84.441A Pathological fracture, right hand, initial encounter for fracture; J90 Pleural effusion, not elsewhere classified; W19.XXXA Unspecified fall, initial encounter; B96.89 Other specified bacterial agents as the cause of diseases classified elsewhere; E66.9 Obesity, unspecified; Z68.33 Body mass index [BMI] 33.0-33.9, adult; E80.6 Other disorders of bilirubin metabolism; E78.5 Hyperlipidemia, unspecified
CPT/HCPCS: 36415; 49083; 51700; 70450; 71045; 76705; 80048; 80053; 80061; 81001; 82140; 82550; 82553; 82607; 82728; 82746; 82948; 83036; 83540; 83690; 83880; 84466; 84484; 85025; 85045; 85610; 85730; 86039; 87070; 87086; 87186; 87205; 87635; 88112; 88305; 89051; 93005; 93306; 94660; 96372; 97139; 99284; J1756; J1817; J2543; J7050

== ENCOUNTER 2019-09-29 21:23 | Emergency (ER) | payer MEDICARE ==
[~2019-09-29] VITALS: Ht 154.9 cm; Wt 79.4 kg
[~2019-09-29 21:23] MED LIST: GLIPIZIDE5 MG PO; METFORMIN HCL500 MG PO; ULTRAM 50MG50 MG PO; ZOSYN 3.373.375 GM/5 IVP
--- OUTSIDE RECORDS SUMMARY | 2019-09-29 21:25 | XMS REPORT ---
Author Author [facility] Organization [facility] Address [address] [place] [address] Phone Unavailable Care Team Providers Care Aoc Plans Intelligence Officer Chief Name Role Phone NO, PCP PCP Unavailable JIM ORNELAS Attphys Unavailable JIM ORNELAS Admphys Unavailable Problems Condition Name Condition Details Condition Category Status Onset Date Resolution Date Last Treatment Date Treating Clinician Comments Source Problem Condition Active [facility] Allergies, Adverse Reactions, Alerts This patient has no known allergies or adverse reactions. Social History Social Habit Start Date Stop Date Quantity Comments Source Sex Assigned At 1935 00:00:00 1935 00:00:00 Female [facility] Medications Ordered Medication Name Filled Medication Name Start Date Stop Da te Current Medication? Ordering Clinician Indication Dosage Frequency Signature (SIG) Comments Components Source Glipizide Glipizide Yes 5 Twice A Day [facility] Metformin Hcl Metformin Hcl Yes 500 Daily [facility] Kxwehlkbiqkg-Pdop-Bpmjbxgj,Iso (Zosyn 3. 375 Gm Galaxy Bag) 3.375 Gm/50 Ml FROZ.PIGGY Xxwndifcizya-Apkb-Cvpmvnus,Iso (Zosyn 3. 375 Gm Galaxy Bag) 3.375 Gm/50 Ml FROZ.PIGGY Yes 3.375 Every 6 Hours [facility] Ccuciavbgtnn-Txjg-Qzylzonf,Iso (Zosyn 3. 375 Gm Galaxy Bag) 3.375 Gm/50 Ml FROZ.PIGGY Ajgqpcdfvuar-Wgar-Qurwcyiz,Iso (Zosyn 3. 375 Gm Galaxy Bag) 3.375 Gm/50 Ml FROZ.PIGGY Yes 3.375 Every 6 Hours [facility] Tramadol Hcl (Ultram 50MG*) 50 Mg TAB Tramadol Hcl (Ultram 50MG*) 5 0 Mg TAB Yes 50 Every 6 Hours as needed for Pain [facility] Vital Signs Vital Name Observation Time Observation Value Comments Source Body Temperature 2019-09-09 09:21:00 98.0 [degF] [facility] BMI (Body Mass Index) 2019-09-09 01:46:00 33.1 kg/m2 [facility] Weight 2019-09-05 15:58:00 175 [lb_av] [facility] Procedures Procedure Date / Time Performed Performing Clinician Al christianson US guided paracentesis 2019-09-06 00:00:00 [facility] US Abdomen limited 2019-09-06 00:00:00 [facility] Computed tomography of brain without radiopaque contrast 2019-09 00:00:00 [facility] Plan of Care Planned Activity Planned Date Details Comments Source Instructions Fractures - Humerus [facility] Instructions Fall Prevention [facility] Instructions Urinary Tract Infection - Women [facility] Encounters Start Date/Time End Date/Time Encounter Type Admission Type Attendi [facility] Facility Care Department Encounter ID Source 2019-09-05 16:06:00 2019-09-09 10:59:00 Discharged Inpatient 1 JIM ORNELAS [facility] [id number] [facility] Results Test Description Test Time Test Comments Results Result Comments Source Capillary blood glucose measurement by glucometer (mas s/volume) 2019-09-09 07:47:00 Test Item Bedside Glucose (test code = 03515-5) 113 70-120 Meter ID: [id number] [facility] CenterBlood leukocytes automated count (number/volume)2019-09-09 06:05:00* Test Item Value Reference Range Interpretation Comments White Blood Count (test code = 6690-2) 8.59 4.8-10.8 [facility] erythrocytes automated count (number/volume)2019-09-09 06:05:00* Test Item Value Reference Range Interpretation Comments Red Blood Count (test code = 789-8) 3.26 3.6-5.1 [facility] hemoglobin measurement (moles/volume)2019-09-09 06:05:00* Test Item Value Reference Range Interpretation Comments Hemoglobin (test code = 87241-6) 9.6 12.0-16.0 [facility] CenterAutomated blood hematocrit (volume fraction)2019-09-09 06:05:00* Test Item Value Reference Range Interpretation Comments Hematocrit (test code = 4544-3) 29.5 34.2-44.1 [facility] CenterAutomated erythrocyte mean corpuscular jwudfz9984-69-37 06:05:00* Test Item Value Reference Range Interpretation Comments Mean Corpuscular Volume (test code = 787-2) 90.5 81-99 [facility] CenterAutomated erythrocyte mean corpuscular hemoglobin (mass per erythrocyte)2019-09-09 06:05:00* Test Item Value Reference Range Interpretation Comments Mean Corpuscular Hemoglobin (test code = 785-6) 29.4 28-32 [facility] CenterAutomated erythrocyte mean corpuscular hemoglobin concentration measurement (mass/volume)2019-09-09 06:05:00* Test Item Value Reference Range Interpretation Comments Mean Corpuscular Hemoglobin Concent (test code = 786-4) 32.5 31-35 [facility] CenterRDW YcdXx-Mtr6327-37-09 06:05:00* Test Item Value Reference Range Interpretation Comments Red Cell Distribution Width (test code = 49334-7) 16.0 11.7 -14.4 [facility] CenterAutomated blood platelet count (count/volume)2019-09-09 06:05:00* Test Item Value Reference Range Interpretation Comments Platelet Count (test code = 777-3) 136 140-360 [facility] neutrophil count as percentage of total bsuqezlafa3575-07-93 06:05:00* Test Item Value Reference Range Interpretation Comments Neutrophils (%) (Auto) (test code = 57534-6) 69.9 38.7-80.0 [facility] CenterAutomated blood lymphocyte count as percentage ot total hxfroxibrk7463-22-96 06:05:00* Test Item Value Reference Range Interpretation Comments Lymphocytes (%) (Auto) (test code = 736-9) 16.1 18.0-39.1 [facility] CenterAutomated blood monocyte count as percentage of total qvxzaajyov6070-48-42 06:05:00* Test Item Value Reference Range Interpretation Comments Monocytes (%) (Auto) (test code = 5905-5) 11.6 4.4-11.3 [facility] CenterAutomated blood eosinophil count as percentage of total xscqolqeeu0746-94-42 06:05:00* Test Item Value Reference Range Interpretation Comments Eosinophils (%) (Auto) (test code = 713-8) 1.4 0.0-6.0 [facility] CenterAutomated blood basophil count as percentage of total fnsmbembil7965-37-25 06:05:00* Test Item Value Reference Range Interpretation Comments Basophils (%) (Auto) (test code = 706-2) 0.3 0.0-1.0 [facility] CenterFluoroscopic procedure less than one hour ryugfljy6880-87-31 06:05:00* Test Item Value Reference Range Interpretation Comments IM GRANULOCYTES % (test code = IM GRANULOCYTES %) 0.7 0.0- 1.0 [facility] CenterAutomated blood neutrophil count 2019-09-09 06:05:00* Test Item Value Reference Range Interpretation Comments Neutrophils # (Auto) (test code = 751-8) 6.0 2.1-6.9 [facility] CenterBlood lymphocytes count (number/volume) 2019-09-09 06:05:00* Test Item Value Reference Range Interpretation Comments Lymphocytes # (Auto) (test code = 21150-4) 1.4 1.0-3.2 [facility] CenterBlood monocytes automated count (number/volume)2019-09-09 06:05:00* Test Item Value Reference Range Interpretation Comments Monocytes # (Auto) (test code = 742-7) 1.0 0.2-0.8 [facility] CenterAutomated blood eosinophil count 2019-09-09 06:05:00* Test Item Value Reference Range Interpretation Comments Eosinophils # (Auto) (test code = 711-2) 0.1 0.0-0.4 [facility] CenterAutomated blood basophil count (count/volume)2019-09-09 06:05:00* Test Item Value Reference Range Interpretation Comments Basophils # (Auto) (test code = 704-7) 0.0 0.0-0.1 [facility] CenterFluoroscopic procedure less than one hour xgujiitj5424-03-50 06:05:00* Test Item Value Reference Range Interpretation Comments Absolute Immature Granulocyte (auto (werner t code = Absolute Immature Granulocyte (auto) 0.06 0-0.1 [facility] plasma sodium measurement (moles/volume)2019-09-09 06:05:00* Test Item Value Reference Range Interpretation Comments Sodium Level (test code = 2951-2) 137 136-145 [facility] Rockerum or plasma potassium measurement (moles/volume)2019-09-09 06:05:00* Test Item Value Reference Range Interpretation Comments Potassium Level (test code = 2823-3) 3.3 3.5-5.1 [facility] Rockerum or plasma chloride measurement (moles/volume)2019-09-09 06:05:00* Test Item Value Reference Range Interpretation Comments Chloride Level (test code = 2075-0) 104 98-107 [facility] Rockerum or plasma carbon dioxide, total measurement (moles/volume)2019-09-09 06:05:00* Test Item Value Reference Range Interpretation Comments Carbon Dioxide Level (test code = 2028-9) 26 22-29 [facility] Rockerum or plasma anion zte1018-99-17 06:05:00* Test Item Value Reference Range Interpretation Comments Anion Gap (test code = 17452-4) 10.3 8-16 [facility] Rockerum or plasma urea nitrogen measurement (mass/volume)2019-09-09 06:05:00* Test Item Value Reference Range Interpretation Comments Blood Urea Nitrogen (test code = 3094-0) 16 7-26 [facility] Rockerum or plasma creatinine measurement (mass/volume)2019-09-09 06:05:00* Test Item Value Reference Range Interpretation Comments Creatinine (test code = 2160-0) 0.71 0.57-1.11 [facility] Rockerum or plasma urea nitrogen/creatinine mass lcvwb5185-78-88 06:05:00* Test Item Value Reference Range Interpretation Comments BUN/Creatinine Ratio (test code = 3097-3) 23 6-25 [facility] CenterEstimated glomerular filtration rate (GFR) xcxiyabsonfqz8246-37-66 06:05:00* Test Item Value Reference Range Interpretation Comments Estimat Glomerular Filtration Rate (test code = 967887949) > 60 >60 Ranges were taken from the National Kidney Disease Education Program and the [place] [facility] literature.Reference ranges:60 or greater: Izevip30-52 ( for 3 consecutive months): Chronic kidney disease 15 or less: Kidney failureThe [facility] at [facility] Medical CenterGlucose hfcvxhyejvd1371-55-95 06:05:00* Test Item Value Reference Range Interpretation Comments Glucose Level (test code = OHT3384) 106 74-118 [facility] Rockerum or plasma calcium measurement (mass/volume)2019-09-09 06:05:00* Test Item Value Reference Range Interpretation Comments Calcium Level (test code = 72362-6) 7.2 8.4-10.2 [facility] Rockerum or plasma total bilirubin measurement (mass/volume)2019-09-09 06:05:00* Test Item Value Reference Range Interpretation Comments Total Bilirubin (test code = 1975-2) 1.7 0.2-1.2 [facility] CenterFluoroscopic procedure less than one hour xmpajyri7362-49-60 06:05:00* Test Item Value Reference Range Interpretation Comments Aspartate Amino Transf (AST/SGOT) (test code = Aspartate Amino Transf (AST/SGOT)) 22 5-34 [facility] Rockerum or plasma alanine aminotransferase measurement (enzymatic activity/volume)2019-09-09 06:05:00* Test Item Value Reference Range Interpretation Comments Alanine Aminotransferase (ALT/SGPT) (test code = 1742-6) 8 0-55 [facility] Rockerum or plasma protein measurement (mass/volume)2019-09-09 06:05:00* Test Item Value Reference Range Interpretation Comments Total Protein (test code = 2885-2) 4.9 6.5-8.1 [facility] Rockerum or plasma albumin measurement (mass/volume)2019-09-09 06:05:00* Test Item Value Reference Range Interpretation Comments Albumin (test code = 1751-7) 1.9 3.5-5.0 [facility] CenterPlasma globulin measurement (mass/volume) 2019-09-09 06:05:00* Test Item Value Reference Range Interpretation Comments Globulin (test code = 11250-3) 3.0 2.3-3.5 [facility] Rockerum or plasma albumin/globulin mass nebxa2237-79-26 06:05:00* Test Item Value Reference Range Interpretation Comments Albumin/Globulin Ratio (test code = 1759-0) 0.6 0.8-2.0 [facility] Rockerum or plasma alkaline phosphatase measurement (enzymatic activity/volume)2019-09-09 06:05:00* Test Item Value Reference Range Interpretation Comments Alkaline Phosphatase (test code = 6768-6) 55 40-150 [facility] CenterAmmonia Mha-vFhf5755-34-07 05:05:00* Test Item Value Reference Range Interpretation Comments Ammonia (test code = 13800-7) 47 31-123 [facility] RockHOULDER RIGHT BIQPXKDS6020-29-26 20:35:00 [place] [address] Patient Name: MARYJO GEORGE MR #: [id number] : 1935 Age/Sex: 83/F Req #: [id number] Adm Physician: JIM ORNELAS MD Ordered by: MARLA DAS DO Report #: [id number] Location: MED/SURG2 Room/Bed: [facility] Procedure: [id number] DX/SHOULDER RIGHT COMPLETE Exam Date: 09/06/19 Exam Time: 2014 REPORT STATUS: Signed Shoulder c omplete CPT code: 78548 Indication: fracture, need AP, Grashey an d Scap Y [id number] Technique: Portable AP, Y and Grashey images o btained. Comparison: Shoulder series 09/06/2019. Findings: Fracture of the humeral head and neck is redemonstrated with impaction and lateral dis placement of the greater tuberosity. The humeral head remains articulated with the glenoid. The distal fracture fragment (humeral diaphysis) is displaced an teriorly. The clavicle and acromion are properly aligned. No fracture evid ent involving the visualized portion of the scapula. IMPRESSION: Fra cture of the right humeral head and neck without humeral head dislocation. Ant erior displacement of the humeral diaphysis. Signed by: Dr. Callie kiser MD on 09/06/2019 8:38 PM Dictated By: CALLIE RICKS MD Electronica lly Signed By: CALLIE RICKS MD on 09/06/192037 Transcribed By: ROXIE on 09/06/192037 COPY TO: MARLA DAS DO Serum or plasma creatine kinase measurement (enzymatic activity/volume)2019-09-06 13:57:00* Test Item Value Reference Range Interpretation Comments Creatine Kinase (test code = 2157-6) 40 29-168 [facility] Rockerum or plasma creatine kinase MB measurement (mass/volume)2019-09-06 13:57:00* Test Item Value Reference Range Interpretation Comments Creatine Kinase MB (test code = 95719-0) 5.00 0-5.0 [facility] CenterTroponin I measurement by highly sensitive enzyme difthciliud9752-15-96 13:57:00* Test Item Value Reference Range Interpretation Comments Troponin I (test code = 92750-6) 0.064 0-0.300 [facility] CenterUS GUIDED BXWQONOILJKJ3102-47-89 13:29:00 [facility] [address] [place] [address] Patient Name: MARYJO GEORGE MR #: [id number] : 1935 Age/Sex: 83/F Req #: [id number] Adm Physician: JIM ORNELAS MD Ordered by: EL CRUZ MD Re port #: [id number] Location: [facility]/SURG Room/ Bed: [facility] Procedure: [id number] US/US GUIDED PARACENTESIS Exam Date: 09/06/19 Exam Time: 1139 REPORT STATUS: Signed PROCEDURE: Ul trasound-guided paracentesis Procedural Personnel Attending physician(s): Heidy Carolina MD Pre-procedure diagnosis: Ascites Post-procedure diagnosis : Unchanged Indication: Ascites with pain or pressure symptoms Additional cl inical history: None Complications: No immediate complications. IMPRES NEELA: Ultrasound-guided paracentesis with drainage of 5900 mL of serous flu id. Plan: Resume care by clinical team. PROCEDURE SUMMARY: - Limited abdomin al ultrasound - Ultrasound-guided paracentesis - Additional procedure(s): No ne PROCEDURE DETAILS: Pre-procedure Consent: Informed consent for th e procedure including risks, benefits and alternatives was obtained and time-o ut was performed prior to the procedure. Preparation: The site was prepared an d draped using maximal sterile barrier technique including cutaneous antisepsi s. Anesthesia/sedation Level of anesthesia/sedation: None Initial ab dominal ultrasound Initial abdominal ultrasound was performed. Findings: Lar ge ascites. A safe window for paracentesis was identified. Paracentesis L ocal anesthesia was administered. The peritoneal cavity was accessed and fluid return confirmed position. Ascites was drained. The catheter was then removed, and a sterile bandage was applied. Paracentesis access technique: Real-time ultrasound guidance. Catheter placed: 5Fr Yueh Post-drainage ultrasound: Sma ll ascites Additional Details Additional description of procedure: None Equipment details: None Specimens removed: Abdominal fluid Estimated blood loss (mL): Minimal (<10cc) Standardized report: SIR_Paracentesis_v3 Attestation Signer name: Heidy Carolina MD I attest that I was present for the entire procedure. I reviewed the stored images and agree with the report as written. Signed by: Heidy Carolina MD on 09/06/2019 1:30 PM Dictated By: HEIDY CAROLINA MD 1330 Transcribed By: ROXIE on 09/06/19 1330 COPY TO: EL CRUZ MD WRIST COMPLETE [id number] 13:15:00 [place] [address] Patient Name: MARYJO GEORGE MR #: [id number] : 1935 Age/Sex: 83/F Req #: [id number] Adm Physician: JIM ORNELAS MD Ordered by: MARLA DAS DO Report #: [id number] Location: MED/SURG2 Room/Bed: [facility] Procedure: [id number] DX/WRIST CO MPLETE RIGHT Exam Date: 09/06/19 Exam Time: 1245 REPORT STATUS: Signed EXAMINATION: SHOULDER RIGHT COMPLETE, HAND 3+ VIEWS RIGHT, WRIST COMPLETE RIGHT I NDICATION: Trauma COMPARISON: None FINDINGS: Right shoulder: Mildly displaced acute anatomic neck of proximal humerus fracture with mild l ateral displacement of greater tuberosity fragment. No other acute fracture. V isualized portions of the right lung are clear. Right wrist: No acute fract ure or dislocation. Mild widening of the scapholunate interval. Alignment appe ars anatomic. Mild scattered degenerative changes. Atherosclerotic arterial ca lcifications. Right hand: No acute fracture or dislocation. Mild scattered degenerative changes. Atherosclerotic arterial calcifications. IMPRESSION : Mildly displaced anatomic neck of proximal humerus fracture. No acute fracture of the wrist or hand. Mild widening of the scapholunate interval, more likely chronic than related to acute injury. Signed by: Heidy Carolina MD on 09/06/2019 1:20 PM Dictated By: HEIDY CAROLINA MD 1320 Transcribed By: ROXIE on 09/06/19 1320 COPY TO: MARLA DAS DO HAND 3+ VIEWS [id number] 13:15:00 [place] [address] Patient Name: MARYJO GEORGE MR #: [id number] : 1935 Age/Sex: 83/F Req #: [id number] Adm Physician: JIM ORNELAS MD Ordered by: MARLA DAS DO Report #: [id number] Location: MED/SURG[address] [place] [address]/Bed: [facility] Procedure: [id number] DX/HAND 3+ VIEWS RIGHT Exam Date: 09/06/19 Exam Time: 1245 REPORT STATUS: Signed EXAMINATION: SHOULDER RIGHT COMPLETE, HAND 3+ VIEWS RIGHT, WRIST COMPLETE RIGHT IN DICATION: Trauma COMPARISON: None FINDINGS: Right shoulder: Mildly displaced acute anatomic neck of proximal humerus fracture with mild la teral displacement of greater tuberosity fragment. No other acute fracture. Vi sualized portions of the right lung are clear. Right wrist: No acute fractu re or dislocation. Mild widening of the scapholunate interval. Alignment appea rs anatomic. Mild scattered degenerative changes. Atherosclerotic arterial rodriguez cifications. Right hand: No acute fracture or dislocation. Mild scattered d egenerative changes. Atherosclerotic arterial calcifications. IMPRESSION: Mildly displaced anatomic neck of proximal humerus fracture. No acute f racture of the wrist or hand. Mild widening of the scapholunate interval, m ore likely chronic than related to acute injury. Signed by: Marlen Figueredo on 09/06/2019 1:20 PM Dictated By: HEIDY CAROLINA MD 1320 Transcribed By: ROXIE on 09/06/19 1320 COPY TO: MARLA DAS DO SHOULDER RIGHT SZKKACHK9203-35-41 13:15:00 [place] [address] Patient Name: MARYJO GEORGE MR #: [id number] : 1935 Age/Sex: 83/F Req #: [id number] Adm Physician: JIM ORNELAS MD Ordered by: MARLA DAS DO Report #: [id number] Location: MED/[facility] Room/Bed: [facility] Procedure: [id number] DX/SHOULDER RIGHT COMPLETE Exam Date: 09/06/19 Exam Time: 1245 REPORT STATUS: Signed EXAMINATIO N: SHOULDER RIGHT COMPLETE, HAND 3+ VIEWS RIGHT, WRIST COMPLETE RIGHT INDICATION: Trauma COMPARISON: None FINDINGS: Right should er: Mildly displaced acute anatomic neck of proximal humerus fracture with mil d lateral displacement of greater tuberosity fragment. No other acute fracture . Visualized portions of the right lung are clear. Right wrist: No acute fr acture or dislocation. Mild widening of the scapholunate interval. Alignment a ppears anatomic. Mild scattered degenerative changes. Atherosclerotic arterial calcifications. Right hand: No acute fracture or dislocation. Mild scatter ed degenerative changes. Atherosclerotic arterial calcifications. IMPRESS ION: Mildly displaced anatomic neck of proximal humerus fracture. No acu te fracture of the wrist or hand. Mild widening of the scapholunate interva l, more likely chronic than related to acute injury. Signed by: Heidy garcia MD on 09/06/2019 1:20 PM Dictated By: HEIDY CAROLINA MD Electronically Sign ed By: HEIDY CAROLINA MD on 09/06/19 1320 Transcribed By: ROXIE on 09/06/19 1320 COPY TO: MARLA DAS DO Specimen source identification of body txkti5901-09-81 11:47:00* Test Item Value Reference Range Interpretation Comments Body Fluid Type (test code = 98004-4) PERITONEAL [facility] CenterEvaluation of color of body fluid 2019-09-06 11:47:00* Test Item Value Reference Range Interpretation Comments Body Fluid Color (test code = 6824-7) YELLOW [facility] CenterDetermination of appearance of body fluid 2019-09-06 11:47:00* Test Item Value Reference Range Interpretation Comments Body Fluid Appearance (test code = 9335-1) SL.CLOUDY [facility] body fluid leukocytes count (number/volume)2019-09-06 11:47:00* Test Item Value Reference Range Interpretation Comments Body Fluid WBC (test code = 6743-9) 30 [facility] fluid erythrocytes count (number/volume)2019-09-06 11:47:00* Test Item Value Reference Range Interpretation Comments Body Fluid RBC (test code = 6741-3) 38 [facility] fluid neutrophils/100 cavngliiid0779-39-71 11:47:00* Test Item Value Reference Range Interpretation Comments Body Fluid Neutrophils (test code = 35860-2) 3 [facility] CenterBody fluid lymphocyte rfcyu4598-77-93 11:47:00* Test Item Value Reference Range Interpretation Comments Body Fluid Lymphocytes (test code = 34604106) 48 [facility] CenterBody fluid monocyte ihxyy3103-21-37 11:47:00* Test Item Value Reference Range Interpretation Comments Body Fluid Monocytes (test code = 55208-7) 44 [facility] CenterBody fluid eosinophil percentage 2019-09-06 11:47:00* Test Item Value Reference Range Interpretation Comments Body Fluid Eosinophils (test code = 23844-5) 1 [facility] CenterBody fluid other cells manual count 2019-09-06 11:47:00* Test Item Value Reference Range Interpretation Comments Body Fluid Other Cells (test code = 179440583) 4 MACROPHAGESThe [facility] CenterTotal cell ktxnl1958-35-55 11:47:00* Test Item Value Reference Range Interpretation Comments Body Fluid Total Cells Counted (test code = 05802-2) 100 [facility] CenterUS ABDOMEN BDQNCWA4906-16-88 09:07:00 [facility] [address] [place] [address] Patient Name: MARYJO GEORGE MR #: [id number] : 1935 Age/Sex: 83/F Req #: [id number] Adm Physician: JIM ORNELAS MD Ordered by: EL CRUZ MD Report #: [id number] Location: MED/SURG2 Room/Bed: [facility] Procedure: [id number] US/US ABDOMEN LIMITED Exam Date: 09/06/19 Exam Time: 0745 REPORT STATUS: Signed EXAM: Limited abd ominal Ultrasound INDICATION: Ascites [id number] COMPARI SON: None. TECHNIQUE: Transverse and longitudinal images of the 4 abdominal q uadrants FINDINGS: Sonographic evaluation of the 4 abdominal q uadrants confirms presence of moderate anechoic ascites throughout the periton eal space. IMPRESSION: Moderate ascites. Signed by: Dr. Yana Kelley M.D. on 09/06/2019 9:08 AM Dictated By: YANA FRIAS MD 7 Transcribed By: ROXIE on 907 COPY TO: EL CRUZ MD Prothrombin time (PT) in platelet poor plasma by coagulation [id number] 06:20:00* Test Item Value Reference Range Interpretation Comments Prothrombin Time (test code = 5902-2) 16.6 11.9-14.5 [facility] Center[facility] in Platelet poor plasma by Coagulation gftya6583-90-25 06:20:00* Test Item Value Reference Range Interpretation Comments Prothromb Time International Ratio (test code = 6301-6) 1.26 Oral Anticoagulant Therapy INR Values:1. Low Intensity Therapy 1.5 - 2.02 . Moderate Intensity Therapy 2.0 - 3.03. High Intensity Therapy(1) 2.5 - 3. 54. High Intensity Therapy(2) 3.0 - 4.05. Panic Value INR > 5.0 [facility] CenterActivated partial thromboplastin time (aPTT) in platelet poor plasma by coagulation zyuda1898-15-65 06:20:00* Test Item Value Reference Range Interpretation Comments Activated Partial Thromboplast Time (test code = 15562-3) 36.0 23.8-35.5 [facility] CenterFluoroscopic procedure less than one hour oxwcajen1472-24-52 06:20:00* Test Item Value Reference Range Interpretation Comments Hemoglobin A1c Percent (test code = Hemoglobin A1c Percent) 5.5 4.0-7.0 [facility] plasma iron measurement (mass/volume)2019-09-06 06:20:00* Test Item Value Reference Range Interpretation Comments Iron Level (test code = 2498-4) 30 50-170 [facility] Rock[facility]um or plasma iron binding capacity measurement (mass/volume)2019-09-06 06:20:00* Test Item Value Reference Range Interpretation Comments Total Iron Binding Capacity (test code = 2500-7) 164 261-4 78 [facility] Rockerum or plasma iron saturation measurement (mass fraction)2019-09-06 06:20:00* Test Item Value Reference Range Interpretation Comments Percent Iron Saturation (test code = 2502-3) 18 15-50 [facility] Rock[facility]um or plasma transferrin measurement (mass/volume)2019-09-06 06:20:00* Test Item Value Reference Range Interpretation Comments Transferrin (test code = 3034-6) 117 180-382 [facility] Rock[facility]um or plasma ferritin measurement (mass/volume)2019-09-06 06:20:00* Test Item Value Reference Range Interpretation Comments Ferritin (test code = 2276-4) 57.14 4.63-204.00 [facility] Rock[facility]um or plasma triglyceride measurement (mass/volume)2019-09-06 06:20:00* Test Item Value Reference Range Interpretation Comments Triglycerides Level (test code = 2571-8) 72 0-149 [facility]um or plasma cholesterol measurement (mass/volume)2019-09-06 06:20:00* Test Item Value Reference Range Interpretation Comments Cholesterol Level (test code = 2093-3) 103 0-199 Less than 200 mg/dL Low Bbls435 - 239 mg/dL Borderline Ouaa995 m g/dl and greater High Risk [facility] Rock[facility]um or plasma cholesterol in LDL measurement (mass/volume) 2019-09-06 06:20:00* Test Item Value Reference Range Interpretation Comments LDL Cholesterol (test code = 2089-1) 63 60-130 [facility]um or plasma cholesterol in HDL measurement (mass/volume)2019-09-06 06:20:00* Test Item Value Reference Range Interpretation Comments HDL Cholesterol (test code = 2085-9) 26 40-60 [facility] Rock[facility]um or plasma total cholesterol/cholesterol in HDL mass qrjcp3943-95-47 06:20:00* Test Item Value Reference Range Interpretation Comments Cholesterol/HDL Ratio (test code = 9830-1) 4.0 3.0-3.6 [facility] CenterBlood cobalamin (vitamin B12) measurement (mass/volume)2019-09-06 06:20:00* Test Item Value Reference Range Interpretation Comments Vitamin B12 Level (test code = 67468-6) 911 213816 [facility] Rockerum or plasma hepatitis A virus IgM antibody detection by fjqrzzodqcf2759-66-91 06:20:00* Test Item Value Reference Range Interpretation Comments Hepatitis A IgM Antibody (test code = 21505-8) Negative Negativ e [facility] Rockerum or plasma hepatitis B virus surface antigen detection by bnhlktyhozo4195-94-81 06:20:00* Test Item Value Reference Range Interpretation Comments Hepatitis B Surface Antigen (test code = 5196-1) Negative Negat da [facility] Rockerum or plasma hepatitis B virus core IgM antibody detection by istxygmqbhe7156-27-91 06:20:00* Test Item Value Reference Range Interpretation Comments Hepatitis B Core IgM Antibody (test code = 01894-7) Negative Ne gative [facility] Rockerum hepatitis C virus antibody tqfvzjspw6794-02-49 06:20:00* Test Item Value Reference Range Interpretation Comments Hepatitis C Antibody (test code = 61349-6) <0.1 0.0-0.9 Negative: < 0.8 Indeterminate: 0.8 - 0.9 Positive: > 0.9 The CDC recommends that a positive HCV antibody result be followed up with a HCV Nucleic Acid Amplification test (345995).Performed at: [facility] [address] [place] [address] [id number] Director: Joesph Syed MD, Phone: [phone] [facility] Rockerum or plasma folate measurement (mass/volume)2019-09-06 06:20:00* Test Item Value Reference Range Interpretation Comments Folate (test code = 2284-8) 11.5 >3.0 A serum folate concentration of less than 3.1 ng/mL isconsidered to represent cl inical deficiency.Performed at: [facility] [id number] Director: Joesph Syed MD, Phone: [phone] [facility] CenterAutomated reticulocyte count as percentage of total nulerdxqbsiw4765-58-32 04:45:00* Test Item Value Reference Range Interpretation Comments Percent Reticulocyte Count (test code = 54976-9) 2.8 0.8-2 .2 [facility] CenterUrine color acobnhdxccqru6550-88-77 01:10:00* Test Item Value Reference Range Interpretation Comments Urine Color (test code = 5778-6) ARJUN YELLOW [facility] CenterUrine wcjzjxf6166-84-02 01:10:00* Test Item Value Reference Range Interpretation Comments Urine Clarity (test code = 84904-4) CLOUDY CLEAR [facility] Rockpecific gravity of Urine by Test strip 2019-09-06 01:10:00* Test Item Value Reference Range Interpretation Comments Urine Specific [place] (test code = 5811-5) >=1.030 1.010-1.02 5 [facility] CenterUrine pH measurement by automated test yunqj2249-90-13 01:10:00* Test Item Value Reference Range Interpretation Comments Urine pH (test code = 97170-8) 5.5 5-7 [facility] CenterUrine leukocyte esterase detection by lsyzamjo0054-39-79 01:10:00* Test Item Value Reference Range Interpretation Comments Urine Leukocyte Esterase (test code = 5799-2) 1+ NEGATIVE [facility] CenterUrine nitrite guzxdmaio6971-34-22 01:10:00* Test Item Value Reference Range Interpretation Comments Urine Nitrite (test code = 80382-4) POSITIVE NEGATIVE [facility] CenterUrine protein measurement by test strip (mass/volume)2019-09-06 01:10:00* Test Item Value Reference Range Interpretation Comments Urine Protein (test code = 5804-0) 2+ NEGATIVE [facility] CenterUrine glucose sfafxmbfc3525-82-38 01:10:00* Test Item Value Reference Range Interpretation Comments Urine Glucose (UA) (test code = 2349-9) NEGATIVE NEGATIVE [facility] CenterUrine ketones detection by automated test ozmkl7544-77-71 01:10:00* Test Item Value Reference Range Interpretation Comments Urine Ketones (test code = 15887-0) 2+ NEGATIVE [facility] CenterUrine urobilinogen measurement by test strip (mass/volume)2019-09-06 01:10:00* Test Item Value Reference Range Interpretation Comments Urine Urobilinogen (test code = 96223-0) 1 0.2-1 [facility] CenterUrine total bilirubin measurement (mass/volume)2019-09-06 01:10:00* Test Item Value Reference Range Interpretation Comments Urine Bilirubin (test code = 1978-6) SMALL NEGATIVE [facility] CenterUrine erythrocytes xwvapwckl9830-12-32 01:10:00* Test Item Value Reference Range Interpretation Comments Urine Blood (test code = 63010-1) 2+ NEGATIVE [facility] CenterAutomated urine sediment leukocyte count by microscopy (number/high power field)2019-09-06 01:10:00* Test Item Value Reference Range Interpretation Comments Urine WBC (test code = 5821-4) >50 0-5 [facility] CenterErythrocytes detection in urine sediment by light lqypayjpzk9059-14-54 01:10:00* Test Item Value Reference Range Interpretation Comments Urine RBC (test code = 54916-4) 21-50 0-5 [facility] CenterBacteria detection in urine sediment by light frlmfqqxcq8734-65-92 01:10:00* Test Item Value Reference Range Interpretation Comments Urine Bacteria (test code = 55157-8) MANY NONE [facility] CenterEpithelial cells detection in urine sediment by light wasptmoqyl1908-43-32 01:10:00* Test Item Value Reference Range Interpretation Comments Urine Epithelial Cells (test code = 84752-6) FEW NONE [facility] CenterRenal epithelial cells detection in urine sediment by light ydppwgpkvz1424-79-74 01:10:00* Test Item Value Reference Range Interpretation Comments Urine Renal Epithelial Cells (test code = 95781-1) FEW NON E [facility] CenterBacterial urine mmmsjaf1446-28-05 01:10:00* Test Item Value Reference Range Interpretation Comments Urine Culture (test code = 630-4) CITROBACTER KOSERI [facility] CenterCT BRAIN SU5701-95-24 23:42:00 [facility] [address] [address] Patient Name: MARYJO GEORGE MR #: [id number] : 1935 Age/Sex: 83/F Req #: [id number] Adm Physician: JIM ORNELAS MD Ordered by: JIM ORNELAS MD Report #: [id number] Location: MED/SURG2 Room/Bed: [facility] Procedure: [id number] CT/CT BRAIN WO Exam Date: 09/05/19 Exam Time: 2224 REPORT STATUS: Signed History:Altered mental stat us Comparison studies: None Technique: Axial images were obtained from the skull base to the vertex. Coronal and sagittal images reconstructed f rom the axial data. Dose modulation, iterative reconstruction, and/or weight b ased adjustment of the mA/kV was utilized to reduce the radiation dose to as low as reasonably achievable. Intravenous contrast: None Findings: Scalp/skull: No abnormalities. Extra-axial spaces: No masses. N o fluid collections. Brain sulci: Moderately prominent. Ventricles: Moder ate compensatory dilatation. No hydrocephalus. Parenchyma: Ill-defined, confluent hypodensities in the supratentorial white matter are small vessel i schemic changes. No masses, hemorrhage, acute or chronic cortical vascular in sults. Sellar/suprasellar region: No abnormalities. Craniocervical juncti on: Patent foramen magnum. No Chiari one malformation. Incidental findings : Atherosclerotic calcifications in the carotid siphons and vertebral arteries . Peripheral mucosal thickening in a hypoplastic left sphenoid sinus. Imp ression: No acute abnormalities. Chronic findings: 1. Moderate gene ralized volume loss. 2. Moderate supratentorial white matter small vessel isc hemic changes. Signed by: Dr. Gagan Santiago M.D. on 09/05/2019 11:44 PM Dictated By: GAGAN SANTIAGO MD, MD 43 Transcribed By: ROXIE on 09/05/192343 COPY TO: JIM ORNELAS MD BNP Tmm-vZvd0702-85-05 18:20:00* Test Item Value Reference Range Interpretation Comments B-Type Natriuretic Peptide (test code = 15671-1) 121.2 0-100 [facility] Rock[facility]um or plasma lipase measurement (enzymatic activity/volume)2019-09-05 18:20:00* Test Item Value Reference Range Interpretation Comments Lipase (test code = 3040-3) 26 8-78 [facility] CenterCHEST SINGLE (PORTABLE)2019-09-05 16:46:00 [facility] [address] [place] [address] Patient Name: MARYJO GEORGE MR #: [id number] : 1935 Age/Sex: 83/F Req #: [id number] Adm Physician: Ordered by: PRECIOUS CRENSHAW DO Report #: [id number] Location: ER Room/Bed: Procedure: [id number] DX/CHEST SINGLE (PORTABLE) Exam Date: 09/05/19 Exam Time: 1624 REPORT STATUS: Signed EXAM: CHEST S CLAY (PORTABLE) DATE: 09/05/2019 4:24 PM INDICATION: Fall/edema COMPARISON: None IMPRESSION: Lung volumes are low/there is poor insp iratory effort. The trachea is midline. There is minimal prominence of the int erstitium which is nonspecific but can be seen in setting of edema. There is n o evidence for large focal consolidation or pneumothorax. There is blunting of the costophrenic angles and trace effusions are suspected. The cardiomed iastinal silhouette is magnified by technique. Atherosclerotic calcifications are noted within the thoracic aorta. No acute osseous abnormality is identifie d. Signed by: Dr. Danny Cartwright MD on 09/05/2019 4:47 PM Dictated B y: DANNY CARTWRIGHT MD 46 Transcribed By: ROXIE on 09/05/191646 COPY TO: PRECIOUS CRENSHAW DO Fluoroscopic procedure less than one hour ffxpqsud9050-07-30 16:22:00* Test Item Value Reference Range Interpretation Comments Coronavirus (PCR) (test code = Coronavirus (PCR)) NOT DETECTED NOTD ETECTED SARS-COV-2 (COVID19), HIGHRISK, RT-PCRNegative results do not preclude SARS-CoV- 2 infection and should not be used as the sole basis for patient management deci sions. Negative results must be combined with clinical observations, patient his tory, and epidemiological information. Optimum specimen types and timing for pea k viral levels during infections caused by SARS-CoV-2 have not been determined. Collection of multiple specimens ot types of specimens may be necessary to detec t virus. Improper specimen collection and handling, sequence variability under p rimers/probes, or organism present below the limit of detection may lead to fals e negative results. Positive and negative predictive values of testing are highl y dependent on prevalance. False negative test results are more likely when prev alence is high.The expected result is negative (not detected).The SARS-CoV-2 werner t is intended for the qualitative detection of nucleic acid from SARS-CoV-2 in n asopharyngeal and oropharyngeal swab samples from patients who meet COVID-19 cli nical and or epidemiological criteria. For lower respiratory tract specimens, th e assay is submitted for authoriztion by FDA under an Emergency Use Authorizatio n (EUA). Testing methodology is real time RT-PCR. If received as separate collec tion devices, nasopharygeal and oropharyngeal specimens are combined for analysi s. Additional specimens may be split to a separate accession for analysi and rep orting as this test includes a single unit of service.Test results must be corre lated with clinical presentation and evaluated in the context of other laborator y and epidemiologic data. Test performance can be affected because the epidemiol ogy and clinical spectrum of infection caused by SARS-CoV-2 is not fully known. For example, the optimum types of specimens to collect and when during the cours e of infection these specimens are most likely to contain detectable viral RNA m ay not be known.This test has not been Food and Drug Administration (FDA) cleare d or approved and has been authorized by FDA under an Emergency Use Authorizatio n (EUA). The test is only authorized for the duration of the declaration that ci rcumstances exist justifying the authorization of emergency use of in vitro diag nostic tests for detection and/or diagnosis of SARS-CoV-2 under section 564(b) o f the Act, 21 U.S.C. section 360bbb-3(b)(1), unless the authorization is termina katheryn or revoked sooner. [facility] are certified under the C linical Laboratory Improvement Amendments of 1988 (CLIA), 42 U.S.C. section 263a , to perform high complexity tests.Specimen sent to [facility] and testing performed by [facility] [address] [place] [address] [phone] Director: Berto Vang M.D.CLIA # [id number] [facility]
[2019-09-29] MEDS ORDERED: ONDANSETRON HCL INJ 2MG/ML 2ML 2 MG/ML VIAL IV STA (22:05)
--- NOTE | 2019-09-29 22:23 | Emergency Department Note ---
History of Present Illnes History of Present Illness History of Present Illness This is a 83 year old female arrives for medical resort with complaints of vomiting for 1 day. Patient DENIEA abdominal pain. Patient's symptoms began suddenly otherwise denies cough, fever, shortness of breath. Historian: Patient, Tug Hand/EMS Arrival Mode: Car Onset (how long ago): hour(s) Severity: mild Onset quality: sudden Duration (how long): hour(s) Timing of current episode: intermittent Progression: waxing and waning Chronicity: new Past Medical/Family History Physician Review I have reviewed the patient's past medical and family history. Any updates have been documented here. Past Medical History Past Medical History: Hypertension, Diabetes, Hyperlipedemia, Osteoarthritis Past Surgical History: Appendectomy, Hysterectomy, T&A Other Last Tetanus: unknown Review of Systems Review of Systems Constitutional: no symptoms EENTM: no symptoms Cardiovascular: no symptoms Respiratory: no symptoms Gastrointestinal: as per HPI, vomiting; abdominal pain Genitourinary: no symptoms Musculoskeletal: no symptoms Neurological: no symptoms Psychological: no symptoms Endocrine: no symptoms Hematological/Lymphatic: no symptoms Review of other systems All other systems reviewed and negative. Physical Exam Related Data Allergies: Coded Allergies: No Known Allergies (Unverified , 09/05/19) Vital signs reviewed: Yes Physical Exam CONSTITUTIONAL Constitutional: well-developed, well-nourished HENT HENT: normocephalic, atraumatic, oropharynx clear/moist, nose normal HENT L/R: left ext ear normal, right ext ear normal EYES Eyes: PERRL, conjunctivae normal NECK Neck: ROM normal PULMONARY Pulmonary: effort normal, breath sounds normal CARDIOVASCULAR Cardiovascular: regular rhythm, heart sounds normal, capillary refill normal, normal rate GASTROINTESTINAL Abdominal: soft, bowel sounds normal; distension, tender, guarding GENITOURINARY Genitourinary: exam deferred SKIN Skin: warm, dry MUSCULOSKELETAL Musculoskeletal: ROM normal NEUROLOGICAL Neurological: alert, no gross motor or sensory deficits PSYCHOLOGICAL Psychological: mood/affect normal, judgement normal Results Laboratory Lab results reviewed: Yes Laboratory comments Laboratory Tests Test 09/30/19 05:33 09/30/19 01:36 09/29/19 23:29 Sodium Level 134 mmol/L (136-145) 133 mmol/L (136-145) Potassium Level 4.4 mmol/L (3.5-5.1) 4.8 mmol/L (3.5-5.1) Chloride Level 102 mmol/L (98-107) 99 mmol/L (98-107) Carbon Dioxide Level 23 mmol/L (22-29) 26 mmol/L (22-29) Anion Gap 13.4 mmol/L (8-16) 12.8 mmol/L (8-16) Blood Urea Nitrogen 22 mg/dL (7-26) 22 mg/dL (7-26) Creatinine 0.85 mg/dL (0.57-1.11) 0.99 mg/dL (0.57-1.11) Estimat Glomerular Filtration Rate > 60 ML/MIN (60-) 53 ML/MIN (60-) BUN/Creatinine Ratio 26 (6-25) 22 (6-25) Glucose Level 77 mg/dL (74-118) 92 mg/dL (74-118) Calcium Level 8.2 mg/dL (8.4-10.2) 8.5 mg/dL (8.4-10.2) Total Bilirubin 1.2 mg/dL (0.2-1.2) 1.3 mg/dL (0.2-1.2) Aspartate Amino Transf (AST/SGOT) 18 IU/L (5-34) 15 IU/L (5-34) Alanine Aminotransferase (ALT/SGPT) 10 IU/L (0-55) 11 IU/L (0-55) Alkaline Phosphatase 99 IU/L (40-150) 112 IU/L (40-150) Total Protein 6.2 g/dL (6.5-8.1) 6.8 g/dL (6.5-8.1) Albumin 2.2 g/dL (3.5-5.0) 2.4 g/dL (3.5-5.0) Globulin 4.0 g/dL (2.3-3.5) 4.4 g/dL (2.3-3.5) Albumin/Globulin Ratio 0.6 (0.8-2.0) 0.5 (0.8-2.0) Urine Color Yellow (YELLOW) Urine Clarity Clear (CLEAR) Urine pH 6 (5 - 7) Urine Specific [place] 1.025 (1.010-1.025) Urine Protein Negative (NEGATIVE) Urine Glucose (UA) Negative (NEGATIVE) Urine Ketones Negative (NEGATIVE) Urine Blood Negative (NEGATIVE) Urine Nitrite Negative (NEGATIVE) Urine Bilirubin Negative (NEGATIVE) Urine Urobilinogen 1 mg/dL (0.2 - 1) Urine Leukocyte Esterase Negative (NEGATIVE) Urine RBC None /HPF (0-5) Urine WBC 6-10 /HPF (0-5) Urine Epithelial Cells Moderate /LPF (NONE) Urine Bacteria Moderate /HPF (NONE) White Blood Count 8.39 x10e3/uL (4.8-10.8) Red Blood Count 4.15 x10e6/uL (3.6-5.1) Hemoglobin 12.9 g/dL (12.0-16.0) Hematocrit 39.4 % (34.2-44.1) Mean Corpuscular Volume 94.9 fL (81-99) Mean Corpuscular Hemoglobin 31.1 pg (28-32) Mean Corpuscular Hemoglobin Concent 32.7 g/dL (31-35) Red Cell Distribution Width 18.0 % (11.7-14.4) Platelet Count 149 x10e3/uL (140-360) Neutrophils (%) (Auto) 78.6 % (38.7-80.0) Lymphocytes (%) (Auto) 10.1 % (18.0-39.1) Monocytes (%) (Auto) 9.3 % (4.4-11.3) Eosinophils (%) (Auto) 1.1 % (0.0-6.0) Basophils (%) (Auto) 0.4 % (0.0-1.0) Neutrophils # (Auto) 6.6 (2.1-6.9) Lymphocytes # (Auto) 0.9 (1.0-3.2) Monocytes # (Auto) 0.8 (0.2-0.8) Eosinophils # (Auto) 0.1 (0.0-0.4) Basophils # (Auto) 0.0 (0.0-0.1) Absolute Immature Granulocyte (auto 0.04 x10e3/uL (0-0.1) Creatine Kinase 21 IU/L (29-168) Creatine Kinase MB 2.30 ng/mL (0-4.3) Troponin I < 0.05 ng/mL (0.0-0.40) Imaging Imaging results reviewed: Yes Impressions IMPRESSION: 1. Decompensated hepatic cirrhosis. Shrunken nodular cirrhotic liver, large volume simple ascites and gastroesophageal varices.. 2. Moderate volumes of stool in the colon, correlate for constipation. 3. Moderate cardiomegaly. Signed by: Dariel Rahman DO on 09/30/2019 4:39 AM Critical Care Time Subsequent provider I assumed direction of critical care for this patient from another provider of my specialty. Assessment & Plan Reassessment Reassessment 83-year-old female brought to the ED with complaints of vomiting, abdomen relatively nontender. Given patient's age concerns of possible ACS or cardiac etiology. Patient's cardiac markers and EKG normal. Lab work showed mild bilirubin elevation, CT of the pelvis performed shows unremarkable showed no acute infectious/surgical process. Patient tolerating oral intake. Patient hemodynamically stable. Patient stable [facility] with outpatient follow-up given. Assessment & Plan Final Impression: (1) OTHER SPECIFIED NONINFECTIVE GASTROENTERITIS AND COLITIS Assessment & Plan cbc, cmp, ekg, cardiac markers CT AP Home Meds Reported Medications Dropekpobzcf-Hqfd-Vbtwhsub,Iso (ZOSYN 3.375 GM GALAXY BAG) 3.375 Gm/50 Ml Froz.piggy, 3.375 GM IVP Q6HR for 7 Days, PIGGYBACK 20 Vnxsbbswxjtt-Kdeu-Baronels,Iso (ZOSYN 3.375 GM GALAXY BAG) 3.375 Gm/50 Ml Froz.piggy, 3.375 GM IVP Q6H for 7 Days, PIGGYBACK 09/08/19 Tramadol Hcl* (ULTRAM 50MG*) 50 Mg Tab, 50 MG PO Q6H PRN for PAIN, TAB 20 Glipizide (GLIPIZIDE) 5 Mg Tablet, 5 MG PO BID, TAB 20 Metformin Hcl (METFORMIN HCL) 500 Mg Tablet, 500 MG PO DAILY, #60 TAB 09/05/19 Medications in the ED Ondansetron HCl 4 mg NOW STAT IV ; Start 09/29/19 at 22:05; Stop 09/29/19 at 22:13; Status ROMARIO SOLORZANO DO September 29, 2019 22:39
[2019-09-29 23:59] LABS: BASOPHILS % 0.4 % (0.0-1.0); EOSINOPHILS # (AUTO) 0.1 (0.0-0.4); EOSINOPHILS % 1.1 % (0.0-6.0); HEMATOCRIT 39.4 % (34.2-44.1); HEMOGLOBIN 12.9 g/dL (12.0-16.0); LYMPHOCYTES # (AUTO) 0.9 (1.0-3.2); LYMPHOCYTES % 10.1 % (18.0-39.1); MEAN CORPUSCULAR HEMOGLOBIN 31.1 pg (28-32); MEAN CORPUSCULAR HGB CONC 32.7 g/dL (31-35); MEAN CORPUSCULAR VOLUME 94.9 fL (81-99); MONOCYTES # (AUTO) 0.8 (0.2-0.8); MONOCYTES % 9.3 % (4.4-11.3); NEUTROPHILS # (AUTO) 6.6 (2.1-6.9); NEUTROPHILS % 78.6 % (38.7-80.0); PLATELET COUNT 149 x10e3/uL (140-360); RED BLOOD COUNT 4.15 x10e6/uL (3.6-5.1)
[2019-09-30 01:43] LABS: ALANINE AMINOTRANSFERASE 11 IU/L (0-55); ALBUMIN 2.4 g/dL (3.5-5.0); ALBUMIN/GLOBULIN RATIO 0.5 (0.8-2.0); ALKALINE PHOSPHATASE 112 IU/L (40-150); ANION GAP 12.8 mmol/L (8-16); BLOOD UREA NITROGEN 22 mg/dL (7-26); BUN/CREATININE RATIO 22 (6-25); CALCIUM 8.5 mg/dL (8.4-10.2); CARBON DIOXIDE 26 mmol/L (22-29); CHLORIDE 99 mmol/L (98-107); CREATINE KINASE 21 IU/L (29-168); CREATININE, SERUM 0.99 mg/dL (0.57-1.11); EST GLOMERULAR FILTRATION RATE 53 ML/MIN (60-); GLUCOSE 92 mg/dL (74-118); POTASSIUM 4.8 mmol/L (3.5-5.1); SODIUM 133 mmol/L (136-145)
[2019-09-30 02:16] LABS: CLARITY,URINE CLEAR (CLEAR); COLOR,URINE YELLOW (YELLOW)
[2019-09-30 02:17] LABS: BILIRUBIN,URINE NEGATIVE (NEGATIVE); KETONES,URINE NEGATIVE (NEGATIVE); LEUKOCYTE ESTERASE ,URINE NEGATIVE (NEGATIVE); NITRITE,URINE NEGATIVE (NEGATIVE); PROTEIN,URINE DIPSTICK NEGATIVE (NEGATIVE); URINE UROBILINOGEN 1 mg/dL (0.2 - 1)
[2019-09-30] MEDS ORDERED: SODIUM CHLORIDE 0.9% 1000ML 1,000 ML IV STA ×2 (02:17→03:48)
[2019-09-30 02:18] LABS: BACTERIA,URINE MODERATE /HPF; EPITHELIAL CELLS,URINE MODERATE /LPF
[2019-09-30] MEDS ORDERED: SODIUM CHLORIDE 0.9% 50ML 50 ML ONE (02:42)
[2019-09-30] MEDS ORDERED: IOPAMIDOL 370 MG/ML 200 ML INFUS..BTL INJ ONE (02:42)
--- NOTE | 2019-09-30 04:42 | Diagnostic Imaging Report ---
EXAM: CT Abdomen and Pelvis WITH contrast INDICATION: Abdominal pain, vomiting, weakness COMPARISON: None. TECHNIQUE: Abdomen and pelvis were scanned utilizing a multidetector helical scanner from the lung base to the pubic symphysis after administration of IV contrast. Coronal and sagittal reformations were obtained. Routine protocol was performed. Scan was performed when during portal venous phase. IV CONTRAST: 100 mL of Isovue 370 ORAL CONTRAST: None COMPLICATIONS: None RADIATION DOSE: Total DLP: 498 mGy*cm Estimated effective dose: (DLP x 0.015 x size factor) mSv CTDIvol has been reviewed. It is below the limits set by the Radiation Protocol Committee (RPC). Dose modulation, iterative reconstruction, and/or weight based adjustment of the mA/kV was utilized to reduce the radiation dose to as low as reasonably achievable. FINDINGS: LINES and TUBES: None. LOWER THORAX: Moderate cardiomegaly. Bibasilar atelectasis. HEPATOBILIARY: Shoulder nodular cirrhotic liver. No focal hepatic lesions. No biliary ductal dilation. GALLBLADDER: Distended gallbladder with gallstones. No wall thickening. SPLEEN: Mild splenomegaly. Partially calcified small splenic infarct. PANCREAS: No focal masses or ductal dilatation. Atrophic. ADRENALS: No adrenal nodules KIDNEYS/URETERS: Kidneys enhance symmetrically. No hydronephrosis. No cystic or solid mass lesions. No stones. GI TRACT: No abnormal distention, wall thickening, or evidence of bowel obstruction. Small hiatal hernia. Appendix is not seen, no evidence of appendicitis.. PELVIC ORGANS/BLADDER: Unremarkable. LYMPH NODES: No lymphadenopathy. VESSELS: Arterial calcifications.. PERITONEUM / RETROPERITONEUM: Large volume simple ascites. No free air. BONES: Degenerative changes. Osseous demineralization.. SOFT TISSUES: Rectus diastases with protuberant peritoneum. IMPRESSION: 1. Decompensated hepatic cirrhosis. Shrunken nodular cirrhotic liver, large volume simple ascites and gastroesophageal varices.. 2. Moderate volumes of stool in the colon, correlate for constipation. 3. Moderate cardiomegaly. Signed by: Dariel Rahman DO on 09/30/2019 4:39 AM
--- NOTE | 2019-09-30 04:43 | Diagnostic Imaging Report ---
EXAMINATION: CHEST SINGLE (PORTABLE) INDICATION: Nausea COMPARISON: Same day abdominal CT FINDINGS: TUBES and LINES: None. LUNGS: Normal lung volumes. Bibasilar haziness. PLEURA: No pleural effusion or pneumothorax. HEART AND MEDIASTINUM: Cardiac size is mildly enlarged. Aortic calcifications. BONES AND SOFT TISSUES: No acute osseous lesion. Soft tissues are unremarkable. Degenerative changes. UPPER ABDOMEN: No free air under the diaphragm. IMPRESSION: Bibasilar atelectasis. Mild cardiomegaly. Signed by: Dariel Rahman DO on 09/30/2019 4:40 AM
[2019-09-30 05:55] LABS: ALANINE AMINOTRANSFERASE 10 IU/L (0-55); ALBUMIN 2.2 g/dL (3.5-5.0); ALBUMIN/GLOBULIN RATIO 0.6 (0.8-2.0); ALKALINE PHOSPHATASE 99 IU/L (40-150); ANION GAP 13.4 mmol/L (8-16); BLOOD UREA NITROGEN 22 mg/dL (7-26); BUN/CREATININE RATIO 26 (6-25); CALCIUM 8.2 mg/dL (8.4-10.2); CARBON DIOXIDE 23 mmol/L (22-29); CHLORIDE 102 mmol/L (98-107); CREATININE, SERUM 0.85 mg/dL (0.57-1.11); EST GLOMERULAR FILTRATION RATE > 60 ML/MIN (60-); GLUCOSE 77 mg/dL (74-118); POTASSIUM 4.4 mmol/L (3.5-5.1); SODIUM 134 mmol/L (136-145)
[2019-09-30 06:42] VITALS: BP 120/72
== END 2019-09-30 06:55 ==
LOC: ER 21:23
DX: R10.9 Unspecified abdominal pain (principal); R11.2 Nausea with vomiting, unspecified; K52.9 Noninfective gastroenteritis and colitis, unspecified; I10 Essential (primary) hypertension; E11.9 Type 2 diabetes mellitus without complications; E78.5 Hyperlipidemia, unspecified
CPT/HCPCS: 36415; 71045; 74177; 80053; 81001; 82550; 82553; 84484; 85025; 93005; 99284; J7030; Q9967